=== PATIENT | female | born 1960 | race Caucasian/White ===

== ENCOUNTER 2023-08-28 16:07 | Inpatient (IN) | payer OTHER ==
[~2023-08-28] VITALS: Ht 160 cm; Wt 64.6 kg
[2023-08-28] VITALS: BP 160/93; TEMP 99.5; O2SAT 92
[2023-08-28 19:35] LABS: BASOPHILS % (AUTO) 0.1 % (0.0-2.0); EOSINOPHILS # (AUTO) 0.1 K/uL (0.0-0.7); EOSINOPHILS % (AUTO) 0.4 % (0.0-6.0); HEMATOCRIT 38 % (33-45); HEMOGLOBIN 12.9 g/dL (11.5-14.8); LYMPHOCYTES # (AUTO) 0.9 K/uL (0.8-4.8); LYMPHOCYTES % (AUTO) 7.3 % (20.0-44.0); MEAN CORPUSCULAR HEMOGLOBIN 32 PG (26.0-33.0); MEAN CORPUSCULAR HGB CONC 34 g/dl (31.0-36.0); MEAN CORPUSCULAR VOLUME 95 fL (82-100); MONOCYTES # (AUTO) 1.2 K/uL (0.1-1.30); MONOCYTES % (AUTO) 9.6 % (2.0-12.0); NEUTROPHILS # (AUTO) 10.3 K/uL (1.8-8.9); NEUTROPHILS % (AUTO) 82.6 % (43.0-81.0); PLATELET COUNT (AUTO) 68 K/uL (150-450); RED BLOOD CELL COUNT(AUTO) 4.03 MIL/uL (4.0-5.2); RED CELL DISTRIBUTION WIDTH 13.9 % (11.5-15.0); WHITE BLOOD COUNT (AUTO) 12.5 K/uL (4.3-11.0)
[2023-08-28] MEDS ORDERED: KETOROLAC TROMETHAMINE INJ 30 MG/ML VIAL ONE ×2 (19:48→20:45)
[2023-08-28 19:58] LABS: LACTIC ACID 2.3 mmol/L (0.4-2.0)
[2023-08-28] MEDS ORDERED: KETOROLAC TROMETHAMINE INJ 30 MG/ML VIAL IV ONE ×2 (20:00→21:00)
[2023-08-28] MEDS ORDERED: IV NS 0.9% 1,000 ML BAG IV ONE ×2 (20:00→21:30)
[2023-08-28 20:07] LABS: CALCIUM, SERUM 8.6 mg/dL (8.5-10.1); CARBON DIOXIDE 23 mmol/L (21-32); CHLORIDE 97 mmol/L (98-107); CREATININE 0.9 mg/dL (0.6-1.3); GLUCOSE 112 mg/dL (74-106); POTASSIUM 3.1 mmol/L (3.5-5.1); SODIUM SERUM 130 mmol/L (136-145); UREA NITROGEN, BLOOD 13 mg/dL (7-18)
[2023-08-28 20:13] LABS: ALANINE AMINOTRANSFERASE 26 U/L (12-78); ALBUMIN 2.8 g/dL (3.4-5.0); ALKALINE PHOSPHATASE 95 U/L (46-116); ASPARTATE AMINOTRANSFERASE 40 U/L (15-37); BILIRUBIN,DIRECT 0.7 mg/dL (0.0-0.2); BILIRUBIN,TOTAL 1.2 mg/dL (0.2-1.0); TOTAL PROTEIN, SERUM 7.7 g/dL (6.4-8.2)
[2023-08-28 20:32] LABS: APPEARANCE,URINE SLIGHTLY CLOUDY (CLEAR); BILIRUBIN,URINE 1+ (NEGATIVE); BLOOD, URINE 3+ Ery/uL (NEGATIVE); COLOR,URINE YELLOW (YELLOW); KETONES,URINE 1+ mg/dL (NEGATIVE); LEUKOCYTE ESTERASE ,URINE NEGATIVE (NEGATIVE); NITRITE, URINE NEGATIVE (NEGATIVE); PH,URINE 6.5 (5.0-8.0); PROTEIN,URINE 2+ mg/dl (NEGATIVE); UGLUCOSE TRACE mg/dL (NEGATIVE)
[2023-08-28] MEDS ORDERED: ASPIRIN 81 MG TAB.CHEW ONE (20:34)
[2023-08-28 20:38] LABS: INR 1.55 (0.91-1.10)
[2023-08-28 20:46] LABS: UROBILINOGEN,URINE NOTE EU/dL (0.2)
[2023-08-28] MEDS ORDERED: ASPIRIN 81 MG TAB.CHEW PO ONE (21:00)
[2023-08-28] MEDS ORDERED: ACETAMINOPHEN ES 500 MG TABLET PO ONE (21:30)
[2023-08-28] MEDS ORDERED: VANCOMYCIN 1.25 GM in IV D5W 500 ML IV ONE (21:30)
[2023-08-28] MEDS ORDERED: CEFTRIAXONE 1GM BAG (ER ONLY) 1 GM/50 ML PIGGYBACK IV ONE (21:30)
[2023-08-28 22:08] LABS: ADD URINE CULTURE NO; BACTERIA,URINE RARE /HPF (None Seen); RBC,URINE 51-80 /HPF (0-2); URINE AMORPHOUS URATE Few /HPF (None Seen); WBC,URINE 0-2 /HPF (0-3)
[2023-08-28] MEDS ORDERED: CEFTRIAXONE 1GM BAG (ER ONLY) 50 ML IV ONE (22:09)
[2023-08-28 22:17] LABS: ANISOCYTOSIS 1+; BAND % (MANUAL) 4 % (0.0-5.0); LYMPHOCYTES % (MANUAL) 6 % (16-48); MONOCYTES % (MANUAL) 7 % (0-11.0); NEUTROPHILS % (MANUAL) 83 (42-76); PLATELET ESTIMATE DECREASED
[2023-08-28 22:18] LABS: ROULEAUX 1+
[2023-08-28 22:22] LABS: ALBUMIN 2.6 g/dL (3.4-5.0); BILIRUBIN,DIRECT 0.7 mg/dL (0.0-0.2); BILIRUBIN,TOTAL 1.1 mg/dL (0.2-1.0); TOTAL PROTEIN, SERUM 7.1 g/dL (6.4-8.2)
[2023-08-28] MEDS ORDERED: ZOLPIDEM TARTRATE 5 MG TABLET PO PRN (23:00)
[2023-08-28] MEDS ORDERED: Z GUARD REMEDY 4 OZ OINT TP PRN (23:00)
[2023-08-28] MEDS ORDERED: ONDANSETRON HCL/PF 4 MG/2 ML VIAL IVP PRN (23:00)
[2023-08-28] MEDS ORDERED: MAG HYDROX/AL HYDROX/SIMETH 30 ML UDC PO PRN (23:00)
[2023-08-28] MEDS ORDERED: CEFEPIME 1 GM in IV D5W 50 ML IV SCH (23:00)
[2023-08-28] MEDS ORDERED: ONDANSETRON HCL/PF 4 MG/2 ML VIAL ONE (23:10)
[2023-08-28] MEDS ORDERED: VANCOMYCIN 1 GM /D5W 250 ML PB IV ONE (23:11)
[2023-08-28] MEDS ORDERED: ONDANSETRON HCL/PF 4 MG/2 ML VIAL IV PRN (23:30)
[2023-08-29] VITALS (7 sets, daily range): BP systolic 116–150; BP diastolic 72–93; TEMP 98.1–102.5; O2SAT 93–97
[2023-08-29 06:03] LABS: BASOPHILS % (AUTO) 0.1 % (0.0-2.0); EOSINOPHILS # (AUTO) 0.1 K/uL (0.0-0.7); EOSINOPHILS % (AUTO) 0.7 % (0.0-6.0); HEMATOCRIT 37 % (33-45); HEMOGLOBIN 12.6 g/dL (11.5-14.8); LYMPHOCYTES # (AUTO) 0.5 K/uL (0.8-4.8); LYMPHOCYTES % (AUTO) 3.7 % (20.0-44.0); MEAN CORPUSCULAR HEMOGLOBIN 32 PG (26.0-33.0); MEAN CORPUSCULAR HGB CONC 34 g/dl (31.0-36.0); MEAN CORPUSCULAR VOLUME 95 fL (82-100); MONOCYTES # (AUTO) 1.1 K/uL (0.1-1.30); MONOCYTES % (AUTO) 7.7 % (2.0-12.0); NEUTROPHILS # (AUTO) 12.9 K/uL (1.8-8.9); NEUTROPHILS % (AUTO) 87.8 % (43.0-81.0); PLATELET COUNT (AUTO) 63 K/uL (150-450); RED BLOOD CELL COUNT(AUTO) 3.95 MIL/uL (4.0-5.2); RED CELL DISTRIBUTION WIDTH 14.3 % (11.5-15.0); WHITE BLOOD COUNT (AUTO) 14.7 K/uL (4.3-11.0)
[2023-08-29 06:31] LABS: CALCIUM, SERUM 7.3 mg/dL (8.5-10.1); CREATININE 0.7 mg/dL (0.6-1.3); MAGNESIUM 1.7 mg/dL (1.8-2.4); PHOSPHORUS 1.9 mg/dL (2.5-4.9); POTASSIUM 2.9 mmol/L (3.5-5.1)
[2023-08-29 07:06] LABS: BAND % (MANUAL) 4 % (0.0-5.0); LYMPHOCYTES % (MANUAL) 2 % (16-48); MONOCYTES % (MANUAL) 6 % (0-11.0); NEUTROPHILS % (MANUAL) 88 (42-76)
[2023-08-29 07:07] LABS: ANISOCYTOSIS 1+; PLATELET ESTIMATE DECREASED
[2023-08-29] MEDS: CEFEPIME 2 GM in IV D5W 100 ML IV SCH ×2 (08:21→17:15)
[2023-08-29] MEDS ORDERED: PANTOPRAZOLE 40 MG VIAL IV SCH (09:00)
[2023-08-29] MEDS ORDERED: MAGNESIUM OXIDE 400 MG TABLET PO ONE (10:30)
[2023-08-29] MEDS: ASPIRIN 81 MG TAB.CHEW PO SCH (10:42)
[2023-08-29] MEDS: ACETAMINOPHEN 325 MG TABLET PO PRN (11:29)
[2023-08-29] MEDS ORDERED: DOXYCYCLINE 100 MG in IV D5W 100 ML IV SCH (14:00)
[2023-08-29] MEDS: ENOXAPARIN SODIUM 40 MG/0.4 ML DISP.SYRIN SQ SCH ×2 (14:00→15:10)
[2023-08-29] MEDS: POTASSIUM CL. PREMIX PERIPHER. 50 ML IV SCH ×6 (14:04→19:40)
[2023-08-29] MEDS ORDERED: K PHOS NEUTRAL 250 MG TABLET PO ONE (16:00)
[2023-08-29] MEDS: TRAMADOL HCL 50 MG TABLET PO PRN (19:39)
[2023-08-29] MEDS: ACYCLOVIR IV 500 MG in IV D5W 100 ML IV SCH (21:00)
[2023-08-29] MEDS ORDERED: VANCOMYCIN 1 GM in IV D5W 250ml IV ONE (22:00)
[2023-08-29] MEDS: NYSTATIN (PYXIS) 500,000 UNIT/5 ML ORAL.SUSP PO SCH (23:05)
[2023-08-29] MEDS ORDERED: VANCOMYCIN 1 GM /D5W 250 ML PB IV ONE (23:07)
[2023-08-29] MEDS ORDERED: ACYCLOVIR IV 500 MG VIAL IV ONE (23:43)
[2023-08-30] VITALS: BP 157/86; TEMP 101.5; O2SAT 95
[2023-08-30] MEDS: ACYCLOVIR IV 500 MG in IV D5W 100 ML IV SCH ×3 (00:04→21:16)
[2023-08-30] MEDS: ACETAMINOPHEN 325 MG TABLET PO PRN ×2 (00:22→13:16)
[2023-08-30 04:00] VITALS: BP 109/71; TEMP 100.3; O2SAT 97
[2023-08-30 07:17] LABS: EOSINOPHILS # (AUTO) 0.2 K/uL (0.0-0.7); EOSINOPHILS % (AUTO) 1.4 % (0.0-6.0); HEMATOCRIT 37 % (33-45); HEMOGLOBIN 12.5 g/dL (11.5-14.8); LYMPHOCYTES # (AUTO) 0.9 K/uL (0.8-4.8); LYMPHOCYTES % (AUTO) 6.9 % (20.0-44.0); MEAN CORPUSCULAR HEMOGLOBIN 32 PG (26.0-33.0); MEAN CORPUSCULAR HGB CONC 34 g/dl (31.0-36.0); MEAN CORPUSCULAR VOLUME 95 fL (82-100); MONOCYTES # (AUTO) 1.2 K/uL (0.1-1.30); MONOCYTES % (AUTO) 9.3 % (2.0-12.0); NEUTROPHILS % (AUTO) 82.4 % (43.0-81.0); PLATELET COUNT (AUTO) 60 K/uL (150-450); RED BLOOD CELL COUNT(AUTO) 3.92 MIL/uL (4.0-5.2); RED CELL DISTRIBUTION WIDTH 14.6 % (11.5-15.0); WHITE BLOOD COUNT (AUTO) 13.3 K/uL (4.3-11.0)
[2023-08-30 07:24] LABS: CALCIUM, SERUM 7.9 mg/dL (8.5-10.1); CREATININE 0.7 mg/dL (0.6-1.3); MAGNESIUM 2.1 mg/dL (1.8-2.4); PHOSPHORUS 1.5 mg/dL (2.5-4.9); POTASSIUM 3.3 mmol/L (3.5-5.1)
[2023-08-30 08:00] VITALS: BP 120/72; TEMP 97.1; O2SAT 97
[2023-08-30] MEDS ORDERED: Magnesium 1GM/D5W 100ML PREMIX 100 ML IV SCH (09:00)
[2023-08-30] MEDS: NYSTATIN (PYXIS) 500,000 UNIT/5 ML ORAL.SUSP PO SCH ×3 (09:41→18:17)
[2023-08-30] MEDS: PANTOPRAZOLE 40 MG TABLET.DR PO SCH (09:41)
[2023-08-30] MEDS: POTASSIUM CHLORIDE 20 MEQ TAB.PRT.SR PO SCH ×3 (09:41→12:09)
[2023-08-30] MEDS: ASPIRIN 81 MG TAB.CHEW PO SCH (09:41)
[2023-08-30] MEDS: NEUTRA PHOS 1 POWD.PACKET PO SCH ×2 (09:45→18:17)
[2023-08-30] MEDS: VANCOMYCIN 1 GM in IV D5W 250ml IV SCH ×2 (11:16→22:01)
[2023-08-30] MEDS: TRAMADOL HCL 50 MG TABLET PO PRN (11:17)
[2023-08-30 11:49] LABS: PLATELET ESTIMATE DECREASED
[2023-08-30 11:50] LABS: OVALOCYTES 1+; TEAR DROP CELLS 1+
[2023-08-30 12:00] VITALS: BP 160/78; TEMP 97.6; O2SAT 98
[2023-08-30] MEDS ORDERED: POTASSIUM CHLORIDE 20 MEQ TAB.PRT.SR PO ONE (12:00)
[2023-08-30] MEDS: ENOXAPARIN SODIUM 40 MG/0.4 ML DISP.SYRIN SQ SCH (14:00)
[2023-08-30] MEDS: CEFTRIAXONE 2 G in IV D5W 100 ML IV SCH ×2 (15:40→21:17)
[2023-08-30 16:10] VITALS: BP 170/85; TEMP 97.6; O2SAT 98
[2023-08-30 20:00] VITALS: BP 119/81; TEMP 97; O2SAT 90
[2023-08-31] VITALS: BP 133/88; TEMP 97.5; O2SAT 96
[2023-08-31 04:00] VITALS: BP 140/78; TEMP 99.3; O2SAT 95
[2023-08-31] MEDS: HYDROCODONE/APAP 5/325MG TABLET PO PRN ×3 (04:09→23:43)
[2023-08-31] MEDS: ACYCLOVIR IV 500 MG in IV D5W 100 ML IV SCH ×3 (04:21→22:00)
[2023-08-31 07:52] LABS: BASOPHILS % (AUTO) 0.1 % (0.0-2.0); EOSINOPHILS % (AUTO) 0.4 % (0.0-6.0); HEMATOCRIT 36 % (33-45); LYMPHOCYTES # (AUTO) 1.4 K/uL (0.8-4.8); LYMPHOCYTES % (AUTO) 10.7 % (20.0-44.0); MEAN CORPUSCULAR HEMOGLOBIN 32 PG (26.0-33.0); MEAN CORPUSCULAR HGB CONC 34 g/dl (31.0-36.0); MEAN CORPUSCULAR VOLUME 95 fL (82-100); MONOCYTES # (AUTO) 1.2 K/uL (0.1-1.30); MONOCYTES % (AUTO) 9.2 % (2.0-12.0); NEUTROPHILS # (AUTO) 10.5 K/uL (1.8-8.9); NEUTROPHILS % (AUTO) 79.6 % (43.0-81.0); PLATELET COUNT (AUTO) 77 K/uL (150-450); RED BLOOD CELL COUNT(AUTO) 3.76 MIL/uL (4.0-5.2); RED CELL DISTRIBUTION WIDTH 15.1 % (11.5-15.0); WHITE BLOOD COUNT (AUTO) 13.2 K/uL (4.3-11.0)
[2023-08-31 08:00] VITALS: BP 133/86; TEMP 98.4; O2SAT 98
[2023-08-31 08:19] LABS: ALBUMIN 1.8 g/dL (3.4-5.0); BILIRUBIN,TOTAL 0.9 mg/dL (0.2-1.0); CREATININE 0.6 mg/dL (0.6-1.3); MAGNESIUM 2.1 mg/dL (1.8-2.4); PHOSPHORUS 1.5 mg/dL (2.5-4.9); POTASSIUM 3.9 mmol/L (3.5-5.1); TOTAL PROTEIN, SERUM 6.9 g/dL (6.4-8.2)
[2023-08-31] MEDS: CEFTRIAXONE 2 G in IV D5W 100 ML IV SCH ×2 (08:34→21:25)
[2023-08-31] MEDS: PANTOPRAZOLE 40 MG TABLET.DR PO SCH (08:35)
[2023-08-31] MEDS: ASPIRIN 81 MG TAB.CHEW PO SCH (08:35)
[2023-08-31] MEDS: NYSTATIN (PYXIS) 500,000 UNIT/5 ML ORAL.SUSP PO SCH ×3 (08:35→17:34)
[2023-08-31 11:33] LABS: ANISOCYTOSIS 1+; PLATELET ESTIMATE DECREASED
[2023-08-31] MEDS: VANCOMYCIN 1 GM in IV D5W 250ml IV SCH ×2 (11:52→18:02)
[2023-08-31 12:00] VITALS: BP 133/86; TEMP 98.8; O2SAT 98
[2023-08-31] MEDS ORDERED: NEUTRA PHOS 1 POWD.PACKET PO ONE (12:00)
[2023-08-31] MEDS: ENOXAPARIN SODIUM 40 MG/0.4 ML DISP.SYRIN SQ SCH (14:39)
[2023-08-31 16:00] VITALS: BP 109/77; TEMP 98.6
[2023-08-31 16:49] LABS: THYROID STIMULATING HORMONE 2.189 uIU/mL (0.358-3.74)
[2023-08-31 16:52] LABS: C-REACTIVE PROTEIN 26.6 mg/dL (0.0-0.9)
[2023-08-31 17:44] LABS: RHEUMATOID FACTOR SCREEN NEGATIVE (NEGATIVE)
[2023-08-31 20:00] VITALS: BP 127/73; TEMP 99.3; O2SAT 98
[2023-08-31] MEDS ORDERED: IV NS 0.9% 250 ML IV PRN (22:00)
[2023-09-01] VITALS: BP 126/73; TEMP 99.7; O2SAT 95
[2023-09-01] MEDS: VANCOMYCIN 1 GM in IV D5W 250ml IV SCH ×2 (02:38→11:17)
[2023-09-01 04:00] VITALS: BP 140/87; TEMP 98.8; O2SAT 97
[2023-09-01] MEDS: ACYCLOVIR IV 500 MG in IV D5W 100 ML IV SCH ×3 (05:03→21:02)
[2023-09-01 07:23] LABS: BASOPHILS % (AUTO) 0.2 % (0.0-2.0); EOSINOPHILS # (AUTO) 0.1 K/uL (0.0-0.7); EOSINOPHILS % (AUTO) 0.6 % (0.0-6.0); HEMATOCRIT 37 % (33-45); HEMOGLOBIN 12.4 g/dL (11.5-14.8); LYMPHOCYTES # (AUTO) 1.7 K/uL (0.8-4.8); LYMPHOCYTES % (AUTO) 14.6 % (20.0-44.0); MEAN CORPUSCULAR HEMOGLOBIN 32 PG (26.0-33.0); MEAN CORPUSCULAR HGB CONC 34 g/dl (31.0-36.0); MEAN CORPUSCULAR VOLUME 96 fL (82-100); MONOCYTES # (AUTO) 1.2 K/uL (0.1-1.30); MONOCYTES % (AUTO) 10.4 % (2.0-12.0); NEUTROPHILS # (AUTO) 8.4 K/uL (1.8-8.9); NEUTROPHILS % (AUTO) 74.2 % (43.0-81.0); PLATELET COUNT (AUTO) 87 K/uL (150-450); RED BLOOD CELL COUNT(AUTO) 3.86 MIL/uL (4.0-5.2); RED CELL DISTRIBUTION WIDTH 14.8 % (11.5-15.0); WHITE BLOOD COUNT (AUTO) 11.3 K/uL (4.3-11.0)
[2023-09-01 07:53] LABS: CALCIUM, SERUM 8.3 mg/dL (8.5-10.1); CREATININE 0.6 mg/dL (0.6-1.3); MAGNESIUM 2.2 mg/dL (1.8-2.4); PHOSPHORUS 2.2 mg/dL (2.5-4.9)
[2023-09-01 08:00] VITALS: BP 142/82; TEMP 98.5; O2SAT 96
[2023-09-01] MEDS: CEFTRIAXONE 2 G in IV D5W 100 ML IV SCH ×2 (08:32→20:16)
[2023-09-01] MEDS: NYSTATIN (PYXIS) 500,000 UNIT/5 ML ORAL.SUSP PO SCH ×3 (08:33→18:14)
[2023-09-01] MEDS: ASPIRIN 81 MG TAB.CHEW PO SCH (08:33)
[2023-09-01] MEDS: PANTOPRAZOLE 40 MG TABLET.DR PO SCH (08:33)
[2023-09-01 09:56] LABS: BAND % (MANUAL) 3 % (0.0-5.0); LYMPHOCYTES % (MANUAL) 9 % (16-48); MONOCYTES % (MANUAL) 7 % (0-11.0); NEUTROPHILS % (MANUAL) 81 (42-76); PLATELET ESTIMATE DECREASED
[2023-09-01 09:57] LABS: ANISOCYTOSIS 1+; TEAR DROP CELLS 1+
[2023-09-01 10:07] LABS: FOLIC ACID 4.9 ng/mL (>3.0)
[2023-09-01] MEDS: HYDROCODONE/APAP 5/325MG TABLET PO PRN ×2 (10:57→23:18)
[2023-09-01 12:00] VITALS: BP 145/87; TEMP 100.2; O2SAT 95
[2023-09-01 12:07] LABS: HEPATITIS B SURFACE AB Non Reactive (.)
[2023-09-01] MEDS: ACETAMINOPHEN 325 MG TABLET PO PRN ×2 (12:08→20:57)
[2023-09-01 13:07] LABS: *ANA ANTI-CENTROMERE B AB <0.2 AI (0.0-0.9); *ANA ANTI-DNA(DS) AB, QN 2 IU/mL (0-9); *ANA ANTI-JO-1 <0.2 AI (0.0-0.9); *ANA ANTICHROMATIN ANTIBODY <0.2 AI (0.0-0.9); *ANA RNP ANTIBODIES 0.5 AI (0.0-0.9); *ANA SJOGREN'S ANTI-SS-A <0.2 AI (0.0-0.9); *ANA SJOGREN'S ANTI-SS-B <0.2 AI (0.0-0.9); *ANAANTI-SCLERODERMA-70 AB <0.2 AI (0.0-0.9); *ANASMITH AB <0.2 AI (0.0-0.9); *SPE A/G RATIO 0.5 (0.7-1.7); *SPE ALBUMIN 2.2 g/dL (2.9-4.4); *SPE ALPHA-1-GLOBULIN 0.4 g/dL (0.0-0.4); *SPE ALPHA-2-GLOBULIN 0.7 g/dL (0.4-1.0); *SPE BETA GLOBULIN 0.9 g/dL (0.7-1.3); *SPE GLOBULIN, TOTAL 4.7 g/dL (2.2-3.9); *SPE M-SPIKE Not Observed g/dL (Not Observed); *SPE PROTEIN TOTAL 6.9 g/dL (6.0-8.5); *SPEGAMMA GLOBULIN 2.6 g/dL (0.4-1.8)
[2023-09-01] MEDS: ENOXAPARIN SODIUM 40 MG/0.4 ML DISP.SYRIN SQ SCH (13:41)
[2023-09-01 14:06] LABS: IMMUNOGLOBULIN A, SERUM 859 mg/dL (87-352); IMMUNOGLOBULIN G, SERUM 2341 mg/dL (586-1602); IMMUNOGLOBULIN M, SERUM 167 mg/dL (26-217)
[2023-09-01 16:00] VITALS: BP 112/71; TEMP 98.2; O2SAT 98
[2023-09-01] MEDS ORDERED: K PHOS NEUTRAL 250 MG TABLET PO ONE (17:00)
[2023-09-01 20:00] VITALS: BP 144/89; TEMP 101.3; O2SAT 96
[2023-09-01] MEDS: MAGNESIUM HYDROXIDE 30 ML UDC PO PRN (23:25)
[2023-09-02] VITALS: BP 128/62; TEMP 98.4; O2SAT 96
[2023-09-02 04:00] VITALS: BP 119/74; TEMP 98.4; O2SAT 96
[2023-09-02] MEDS: ACYCLOVIR IV 500 MG in IV D5W 100 ML IV SCH ×3 (05:02→21:04)
[2023-09-02 07:38] LABS: CALCIUM, SERUM 7.5 mg/dL (8.5-10.1); CREATININE 0.6 mg/dL (0.6-1.3); POTASSIUM 3.9 mmol/L (3.5-5.1)
[2023-09-02 08:00] VITALS: BP_SYST 114; BP_SYST 132; BP_DIAS 68; BP_DIAS 78; TEMP 98.6; TEMP 99.7; O2SAT 95; O2SAT 98
[2023-09-02 08:48] LABS: BASOPHILS % (AUTO) 0.3 % (0.0-2.0); EOSINOPHILS # (AUTO) 0.1 K/uL (0.0-0.7); HEMATOCRIT 33 % (33-45); HEMOGLOBIN 11.3 g/dL (11.5-14.8); LYMPHOCYTES # (AUTO) 1.1 K/uL (0.8-4.8); LYMPHOCYTES % (AUTO) 13.2 % (20.0-44.0); MEAN CORPUSCULAR HEMOGLOBIN 32 PG (26.0-33.0); MEAN CORPUSCULAR HGB CONC 34 g/dl (31.0-36.0); MEAN CORPUSCULAR VOLUME 96 fL (82-100); MONOCYTES # (AUTO) 0.7 K/uL (0.1-1.30); MONOCYTES % (AUTO) 8.7 % (2.0-12.0); NEUTROPHILS # (AUTO) 6.3 K/uL (1.8-8.9); NEUTROPHILS % (AUTO) 76.8 % (43.0-81.0); PLATELET COUNT (AUTO) 96 K/uL (150-450); RED BLOOD CELL COUNT(AUTO) 3.48 MIL/uL (4.0-5.2); RED CELL DISTRIBUTION WIDTH 14.7 % (11.5-15.0); WHITE BLOOD COUNT (AUTO) 8.2 K/uL (4.3-11.0)
[2023-09-02 09:24] LABS: INR 1.2 (0.91-1.10); PARTIAL THROMBOPLASTIN TIME 32.7 SEC (24.3-34.3); PROTHROMBIN TIME 12.6 SECS (9.2-11.1)
[2023-09-02] MEDS: HYDROCODONE/APAP 5/325MG TABLET PO PRN ×3 (09:35→22:52)
[2023-09-02] MEDS: PANTOPRAZOLE 40 MG TABLET.DR PO SCH (11:05)
[2023-09-02] MEDS: NYSTATIN (PYXIS) 500,000 UNIT/5 ML ORAL.SUSP PO SCH ×3 (11:05→17:08)
[2023-09-02] MEDS: ASPIRIN 81 MG TAB.CHEW PO SCH (11:05)
[2023-09-02] MEDS: CEFTRIAXONE 2 G in IV D5W 100 ML IV SCH ×2 (11:05→21:04)
[2023-09-02 12:00] VITALS: BP_SYST 136; BP_SYST 148; BP_DIAS 76; BP_DIAS 80; TEMP 98.2; TEMP 98.4; O2SAT 97; O2SAT 98
[2023-09-02 12:07] LABS: *WEST NILE VIRUS, IgG, SERUM Negative (Negative); *WEST NILE VIRUS, IgM, SERUM Negative (Negative)
[2023-09-02 12:09] LABS: CSF GLUCOSE 13 mg/dL (40-70); CSF PROTEIN 456.02 mg/dL (15-45)
[2023-09-02] MEDS: AMPICILLIN SODIUM 2 GM in IV NS 0.9% 100 ML IV SCH ×3 (13:13→20:03)
[2023-09-02] MEDS: ENOXAPARIN SODIUM 40 MG/0.4 ML DISP.SYRIN SQ SCH (14:26)
[2023-09-02 14:31] LABS: PLATELET ESTIMATE DECREASED; TEAR DROP CELLS OCC
[2023-09-02] MEDS: VANCOMYCIN 1 GM in IV D5W 250 ML IV SCH ×2 (15:20→21:56)
[2023-09-02 16:00] VITALS: BP 119/69; TEMP 97.5; O2SAT 100
[2023-09-02] MEDS ORDERED: IV D5/ 0.9% NACL 1,000 ML IV PRN (17:30)
[2023-09-02 20:00] VITALS: BP 127/75; TEMP 98.4; O2SAT 100
[2023-09-03] VITALS: BP 120/78; TEMP 98.8; O2SAT 100
[2023-09-03] MEDS: AMPICILLIN SODIUM 2 GM in IV NS 0.9% 100 ML IV SCH ×6 (01:05→20:53)
[2023-09-03 04:00] VITALS: BP 137/85; TEMP 98.8; O2SAT 100
[2023-09-03] MEDS: ACYCLOVIR IV 500 MG in IV D5W 100 ML IV SCH ×3 (05:31→21:56)
[2023-09-03] MEDS: VANCOMYCIN 1 GM in IV D5W 250 ML IV SCH ×3 (06:02→22:59)
[2023-09-03 07:21] LABS: BASOPHILS % (AUTO) 0.2 % (0.0-2.0); EOSINOPHILS # (AUTO) 0.1 K/uL (0.0-0.7); EOSINOPHILS % (AUTO) 1.1 % (0.0-6.0); HEMATOCRIT 30 % (33-45); HEMOGLOBIN 10.3 g/dL (11.5-14.8); LYMPHOCYTES # (AUTO) 0.9 K/uL (0.8-4.8); LYMPHOCYTES % (AUTO) 14.7 % (20.0-44.0); MEAN CORPUSCULAR HEMOGLOBIN 33 PG (26.0-33.0); MEAN CORPUSCULAR HGB CONC 34 g/dl (31.0-36.0); MEAN CORPUSCULAR VOLUME 95 fL (82-100); MONOCYTES # (AUTO) 0.7 K/uL (0.1-1.30); MONOCYTES % (AUTO) 10.2 % (2.0-12.0); NEUTROPHILS # (AUTO) 4.8 K/uL (1.8-8.9); NEUTROPHILS % (AUTO) 73.8 % (43.0-81.0); PLATELET COUNT (AUTO) 97 K/uL (150-450); RED BLOOD CELL COUNT(AUTO) 3.14 MIL/uL (4.0-5.2); RED CELL DISTRIBUTION WIDTH 14.6 % (11.5-15.0); WHITE BLOOD COUNT (AUTO) 6.5 K/uL (4.3-11.0)
[2023-09-03 07:41] LABS: CALCIUM, SERUM 7.3 mg/dL (8.5-10.1); CREATININE 0.7 mg/dL (0.6-1.3); MAGNESIUM 2.2 mg/dL (1.8-2.4); PHOSPHORUS 3.5 mg/dL (2.5-4.9); POTASSIUM 3.9 mmol/L (3.5-5.1)
[2023-09-03 08:00] VITALS: BP 114/76; TEMP 99; O2SAT 100
[2023-09-03] MEDS: NYSTATIN (PYXIS) 500,000 UNIT/5 ML ORAL.SUSP PO SCH ×3 (09:04→17:38)
[2023-09-03] MEDS: PANTOPRAZOLE 40 MG TABLET.DR PO SCH (09:04)
[2023-09-03] MEDS: ASPIRIN 81 MG TAB.CHEW PO SCH (09:04)
[2023-09-03] MEDS: HYDROMORPHONE 1 MG/1 ML DISP.SYRIN IV PRN ×2 (09:05→20:44)
[2023-09-03] MEDS: CEFTRIAXONE 2 G in IV D5W 100 ML IV SCH ×2 (09:05→20:25)
[2023-09-03 09:43] LABS: BAND % (MANUAL) 1 % (0.0-5.0); EOSINOPHILS % (MANUAL) 3 % (0-4); LYMPHOCYTES % (MANUAL) 5 % (16-48); MONOCYTES % (MANUAL) 8 % (0-11.0); NEUTROPHILS % (MANUAL) 83 (42-76)
[2023-09-03 09:44] LABS: PLATELET ESTIMATE DECREASED
[2023-09-03 12:00] VITALS: BP 121/76; TEMP 99.7; O2SAT 100
[2023-09-03] MEDS: ACETAMINOPHEN 325 MG TABLET PO PRN (12:40)
[2023-09-03] MEDS: ENOXAPARIN SODIUM 40 MG/0.4 ML DISP.SYRIN SQ SCH (14:52)
[2023-09-03 16:00] VITALS: BP 115/66; TEMP 98.6; O2SAT 97
[2023-09-03 20:00] VITALS: BP 133/76; TEMP 99.3; O2SAT 98
[2023-09-04] VITALS: BP 134/72; TEMP 98.8; O2SAT 99
[2023-09-04] MEDS: AMPICILLIN SODIUM 2 GM in IV NS 0.9% 100 ML IV SCH ×6 (01:55→22:22)
[2023-09-04 04:00] VITALS: BP 131/78; TEMP 99.7; O2SAT 98
[2023-09-04] MEDS: ACYCLOVIR IV 500 MG in IV D5W 100 ML IV SCH ×3 (04:01→20:51)
[2023-09-04] MEDS: HYDROMORPHONE 1 MG/1 ML DISP.SYRIN IV PRN ×3 (04:07→23:23)
[2023-09-04 06:01] LABS: BASOPHILS % (AUTO) 0.2 % (0.0-2.0); EOSINOPHILS # (AUTO) 0.1 K/uL (0.0-0.7); EOSINOPHILS % (AUTO) 1.4 % (0.0-6.0); HEMATOCRIT 29 % (33-45); HEMOGLOBIN 9.9 g/dL (11.5-14.8); LYMPHOCYTES # (AUTO) 0.8 K/uL (0.8-4.8); LYMPHOCYTES % (AUTO) 12.7 % (20.0-44.0); MEAN CORPUSCULAR HEMOGLOBIN 33 PG (26.0-33.0); MEAN CORPUSCULAR HGB CONC 34 g/dl (31.0-36.0); MEAN CORPUSCULAR VOLUME 96 fL (82-100); MONOCYTES # (AUTO) 0.6 K/uL (0.1-1.30); MONOCYTES % (AUTO) 9.1 % (2.0-12.0); NEUTROPHILS # (AUTO) 4.6 K/uL (1.8-8.9); NEUTROPHILS % (AUTO) 76.6 % (43.0-81.0); PLATELET COUNT (AUTO) 117 K/uL (150-450); RED BLOOD CELL COUNT(AUTO) 3.04 MIL/uL (4.0-5.2); RED CELL DISTRIBUTION WIDTH 14.5 % (11.5-15.0); WHITE BLOOD COUNT (AUTO) 6.1 K/uL (4.3-11.0)
[2023-09-04] MEDS: ACETAMINOPHEN 325 MG TABLET PO PRN ×2 (06:10→22:09)
[2023-09-04] MEDS: VANCOMYCIN 1 GM in IV D5W 250 ML IV SCH ×3 (06:10→22:01)
[2023-09-04 06:13] LABS: CALCIUM, SERUM 7.7 mg/dL (8.5-10.1); CREATININE 0.8 mg/dL (0.6-1.3); MAGNESIUM 2.1 mg/dL (1.8-2.4); PHOSPHORUS 3.4 mg/dL (2.5-4.9); POTASSIUM 3.9 mmol/L (3.5-5.1)
[2023-09-04 08:00] VITALS: BP 114/69; TEMP 99; O2SAT 97
[2023-09-04] MEDS: PANTOPRAZOLE 40 MG TABLET.DR PO SCH (09:33)
[2023-09-04] MEDS: ASPIRIN 81 MG TAB.CHEW PO SCH (09:33)
[2023-09-04] MEDS: NYSTATIN (PYXIS) 500,000 UNIT/5 ML ORAL.SUSP PO SCH ×3 (09:33→18:51)
[2023-09-04] MEDS: CEFTRIAXONE 2 G in IV D5W 100 ML IV SCH ×2 (10:27→20:09)
[2023-09-04 12:00] VITALS: BP 112/62; TEMP 97.8; O2SAT 97
[2023-09-04] MEDS: ENOXAPARIN SODIUM 40 MG/0.4 ML DISP.SYRIN SQ SCH (14:11)
[2023-09-04 16:00] VITALS: BP 116/68; TEMP 98.1; O2SAT 97
[2023-09-04 20:00] VITALS: BP 133/76; TEMP 99.1; O2SAT 97
[2023-09-05] VITALS: BP 113/62; TEMP 98.1; O2SAT 97
[2023-09-05] MEDS: AMPICILLIN SODIUM 2 GM in IV NS 0.9% 100 ML IV SCH ×6 (02:21→20:39)
[2023-09-05] MEDS: ACYCLOVIR IV 500 MG in IV D5W 100 ML IV SCH ×3 (04:15→21:50)
[2023-09-05 04:40] VITALS: BP 102/65; TEMP 97.3; O2SAT 97
[2023-09-05] MEDS: VANCOMYCIN 1 GM in IV D5W 250 ML IV SCH ×3 (05:25→21:50)
[2023-09-05 05:56] LABS: BASOPHILS % (AUTO) 0.3 % (0.0-2.0); EOSINOPHILS # (AUTO) 0.1 K/uL (0.0-0.7); EOSINOPHILS % (AUTO) 1.6 % (0.0-6.0); HEMATOCRIT 27 % (33-45); HEMOGLOBIN 9.1 g/dL (11.5-14.8); LYMPHOCYTES # (AUTO) 0.7 K/uL (0.8-4.8); LYMPHOCYTES % (AUTO) 16.2 % (20.0-44.0); MEAN CORPUSCULAR HEMOGLOBIN 33 PG (26.0-33.0); MEAN CORPUSCULAR HGB CONC 34 g/dl (31.0-36.0); MEAN CORPUSCULAR VOLUME 95 fL (82-100); MONOCYTES # (AUTO) 0.5 K/uL (0.1-1.30); MONOCYTES % (AUTO) 10.6 % (2.0-12.0); NEUTROPHILS # (AUTO) 3.3 K/uL (1.8-8.9); NEUTROPHILS % (AUTO) 71.3 % (43.0-81.0); PLATELET COUNT (AUTO) 114 K/uL (150-450); RED BLOOD CELL COUNT(AUTO) 2.82 MIL/uL (4.0-5.2); RED CELL DISTRIBUTION WIDTH 14.2 % (11.5-15.0); WHITE BLOOD COUNT (AUTO) 4.6 K/uL (4.3-11.0)
[2023-09-05 06:06] LABS: CALCIUM, SERUM 7.8 mg/dL (8.5-10.1); CREATININE 0.8 mg/dL (0.6-1.3); MAGNESIUM 2.3 mg/dL (1.8-2.4); PHOSPHORUS 4.4 mg/dL (2.5-4.9)
[2023-09-05 08:10] VITALS: BP 125/74; TEMP 98.5; O2SAT 100
[2023-09-05] MEDS: ASPIRIN 81 MG TAB.CHEW PO SCH (08:25)
[2023-09-05] MEDS: PANTOPRAZOLE 40 MG TABLET.DR PO SCH (08:25)
[2023-09-05] MEDS: NYSTATIN (PYXIS) 500,000 UNIT/5 ML ORAL.SUSP PO SCH ×3 (08:25→16:32)
[2023-09-05] MEDS: ACETAMINOPHEN 325 MG TABLET PO PRN (08:26)
[2023-09-05] MEDS: CEFTRIAXONE 2 G in IV D5W 100 ML IV SCH ×2 (08:39→20:38)
[2023-09-05] MEDS: HYDROCODONE/APAP 5/325MG TABLET PO PRN ×2 (08:40→21:00)
[2023-09-05] MEDS: HYDROMORPHONE 1 MG/1 ML DISP.SYRIN IV PRN ×2 (09:03→17:26)
[2023-09-05 12:00] VITALS: BP 112/70; TEMP 97.7; O2SAT 99
[2023-09-05] MEDS: ENOXAPARIN SODIUM 40 MG/0.4 ML DISP.SYRIN SQ SCH (14:53)
[2023-09-05 18:00] VITALS: BP 121/70; TEMP 97.7; O2SAT 100
[2023-09-05] MEDS: SOD FERRIC GLUC 125 MG in IV NS 0.9% 100 ML IV SCH (19:21)
[2023-09-05 20:00] VITALS: BP 115/71; TEMP 98.6; O2SAT 98
[2023-09-05 20:55] LABS: HIV-1 p24 ANTIGEN NON REACTIVE (NONREACTIVE); HIV-1/2 ANTIBODY NON REACTIVE (NONREACTIVE)
[2023-09-06] VITALS: BP 110/69; TEMP 98.2; O2SAT 99
[2023-09-06] MEDS: AMPICILLIN SODIUM 2 GM in IV NS 0.9% 100 ML IV SCH ×6 (01:45→21:48)
[2023-09-06 04:00] VITALS: BP 116/74; TEMP 98.4; O2SAT 98
[2023-09-06] MEDS: ACYCLOVIR IV 500 MG in IV D5W 100 ML IV SCH ×3 (05:15→20:24)
[2023-09-06] MEDS: VANCOMYCIN 1 GM in IV D5W 250 ML IV SCH (06:00)
[2023-09-06 06:11] LABS: CALCIUM, SERUM 7.3 mg/dL (8.5-10.1); CREATININE 0.8 mg/dL (0.6-1.3); POTASSIUM 4.5 mmol/L (3.5-5.1)
[2023-09-06 08:00] VITALS: BP 111/68; TEMP 98; O2SAT 99
[2023-09-06] MEDS: CEFTRIAXONE 2 G in IV D5W 100 ML IV SCH ×2 (09:06→20:02)
[2023-09-06] MEDS: PANTOPRAZOLE 40 MG TABLET.DR PO SCH (09:07)
[2023-09-06] MEDS: ASPIRIN 81 MG TAB.CHEW PO SCH (09:07)
[2023-09-06] MEDS: NYSTATIN (PYXIS) 500,000 UNIT/5 ML ORAL.SUSP PO SCH ×3 (09:07→16:22)
[2023-09-06] MEDS: HYDROMORPHONE 1 MG/1 ML DISP.SYRIN IV PRN ×2 (09:12→20:21)
[2023-09-06 12:00] VITALS: BP 115/87; TEMP 97.9; O2SAT 99
[2023-09-06] MEDS: ENOXAPARIN SODIUM 40 MG/0.4 ML DISP.SYRIN SQ SCH (14:00)
[2023-09-06] MEDS: SOD FERRIC GLUC 125 MG in IV NS 0.9% 100 ML IV SCH (14:28)
[2023-09-06 16:00] VITALS: BP 127/79; TEMP 98.6; O2SAT 99
[2023-09-06 20:00] VITALS: BP 118/73; TEMP 99.3; O2SAT 99
[2023-09-06] MEDS: VANCOMYCIN HCL 0.75 GM in IV D5W 250 ML IV SCH (22:39)
[2023-09-07] VITALS: BP 133/80; TEMP 99; O2SAT 99
[2023-09-07] MEDS: AMPICILLIN SODIUM 2 GM in IV NS 0.9% 100 ML IV SCH ×6 (01:10→21:50)
[2023-09-07] MEDS: HYDROCODONE/APAP 5/325MG TABLET PO PRN ×3 (01:11→22:07)
[2023-09-07] MEDS: MAGNESIUM HYDROXIDE 30 ML UDC PO PRN (01:15)
[2023-09-07 04:00] VITALS: BP 110/67; TEMP 98.4; O2SAT 96
[2023-09-07] MEDS: HYDROMORPHONE 1 MG/1 ML DISP.SYRIN IV PRN ×2 (04:16→10:28)
[2023-09-07] MEDS: ACYCLOVIR IV 500 MG in IV D5W 100 ML IV SCH ×2 (04:16→08:52)
[2023-09-07 07:29] LABS: CALCIUM, SERUM 7.4 mg/dL (8.5-10.1); POTASSIUM 4.1 mmol/L (3.5-5.1)
[2023-09-07 08:00] VITALS: BP 128/71; TEMP 98.6; O2SAT 98
[2023-09-07] MEDS: ASPIRIN 81 MG TAB.CHEW PO SCH (08:50)
[2023-09-07] MEDS: NYSTATIN (PYXIS) 500,000 UNIT/5 ML ORAL.SUSP PO SCH ×3 (08:50→17:48)
[2023-09-07] MEDS: CEFTRIAXONE 2 G in IV D5W 100 ML IV SCH ×2 (08:52→21:52)
[2023-09-07] MEDS: PANTOPRAZOLE 40 MG TABLET.DR PO SCH (08:55)
[2023-09-07] MEDS: VANCOMYCIN HCL 0.75 GM in IV D5W 250 ML IV SCH (10:58)
[2023-09-07 12:00] VITALS: BP 123/69; TEMP 99.1; O2SAT 98
[2023-09-07] MEDS: ENOXAPARIN SODIUM 40 MG/0.4 ML DISP.SYRIN SQ SCH (14:37)
[2023-09-07] MEDS: SOD FERRIC GLUC 125 MG in IV NS 0.9% 100 ML IV SCH (14:52)
[2023-09-07 16:00] VITALS: BP 112/95; TEMP 99.1; O2SAT 97
[2023-09-07 20:00] VITALS: BP 143/92; TEMP 99.7; O2SAT 97
[2023-09-08] VITALS: BP 116/67; TEMP 99.3; O2SAT 97
[2023-09-08] MEDS: AMPICILLIN SODIUM 2 GM in IV NS 0.9% 100 ML IV SCH ×6 (00:46→21:28)
[2023-09-08 04:00] VITALS: BP 121/78; TEMP 98.8; O2SAT 97
[2023-09-08 06:57] LABS: BASOPHILS % (AUTO) 0.5 % (0.0-2.0); EOSINOPHILS # (AUTO) 0.1 K/uL (0.0-0.7); EOSINOPHILS % (AUTO) 1.9 % (0.0-6.0); HEMATOCRIT 25 % (33-45); HEMOGLOBIN 8.7 g/dL (11.5-14.8); LYMPHOCYTES # (AUTO) 0.8 K/uL (0.8-4.8); LYMPHOCYTES % (AUTO) 21.7 % (20.0-44.0); MEAN CORPUSCULAR HEMOGLOBIN 34 PG (26.0-33.0); MEAN CORPUSCULAR HGB CONC 35 g/dl (31.0-36.0); MEAN CORPUSCULAR VOLUME 97 fL (82-100); MONOCYTES # (AUTO) 0.6 K/uL (0.1-1.30); MONOCYTES % (AUTO) 16.1 % (2.0-12.0); NEUTROPHILS # (AUTO) 2.2 K/uL (1.8-8.9); NEUTROPHILS % (AUTO) 59.8 % (43.0-81.0); PLATELET COUNT (AUTO) 141 K/uL (150-450); RED BLOOD CELL COUNT(AUTO) 2.59 MIL/uL (4.0-5.2); RED CELL DISTRIBUTION WIDTH 14.3 % (11.5-15.0); WHITE BLOOD COUNT (AUTO) 3.7 K/uL (4.3-11.0)
[2023-09-08 07:22] LABS: CALCIUM, SERUM 7.6 mg/dL (8.5-10.1); CREATININE 1.1 mg/dL (0.6-1.3); MAGNESIUM 2.3 mg/dL (1.8-2.4); PHOSPHORUS 4.2 mg/dL (2.5-4.9); POTASSIUM 4.5 mmol/L (3.5-5.1)
[2023-09-08 08:00] VITALS: BP 106/74; TEMP 98.4; O2SAT 96
[2023-09-08] MEDS: CEFTRIAXONE 2 G in IV D5W 100 ML IV SCH ×2 (08:07→20:42)
[2023-09-08] MEDS: ASPIRIN 81 MG TAB.CHEW PO SCH (09:00)
[2023-09-08] MEDS: NYSTATIN (PYXIS) 500,000 UNIT/5 ML ORAL.SUSP PO SCH ×3 (09:00→17:10)
[2023-09-08] MEDS: PANTOPRAZOLE 40 MG TABLET.DR PO SCH (09:00)
[2023-09-08] MEDS: HYDROCODONE/APAP 5/325MG TABLET PO PRN ×2 (09:09→22:02)
[2023-09-08 12:00] VITALS: BP 126/76; TEMP 98.4; O2SAT 97
[2023-09-08] MEDS: SOD FERRIC GLUC 125 MG in IV NS 0.9% 100 ML IV SCH (14:01)
[2023-09-08] MEDS: ENOXAPARIN SODIUM 40 MG/0.4 ML DISP.SYRIN SQ SCH (14:24)
[2023-09-08 16:00] VITALS: BP 140/77; TEMP 98.4; O2SAT 96
[2023-09-08 20:00] VITALS: BP 133/81; TEMP 99; O2SAT 97
[2023-09-09] VITALS: BP 115/64; TEMP 99; O2SAT 96
[2023-09-09] MEDS: AMPICILLIN SODIUM 2 GM in IV NS 0.9% 100 ML IV SCH ×6 (00:34→20:11)
[2023-09-09 04:00] VITALS: BP 126/72; TEMP 98.3; O2SAT 99
[2023-09-09 07:35] LABS: BASOPHILS % (AUTO) 0.5 % (0.0-2.0); EOSINOPHILS % (AUTO) 1.5 % (0.0-6.0); HEMATOCRIT 25 % (33-45); HEMOGLOBIN 8.3 g/dL (11.5-14.8); LYMPHOCYTES # (AUTO) 0.7 K/uL (0.8-4.8); LYMPHOCYTES % (AUTO) 21.2 % (20.0-44.0); MEAN CORPUSCULAR HEMOGLOBIN 33 PG (26.0-33.0); MEAN CORPUSCULAR HGB CONC 34 g/dl (31.0-36.0); MEAN CORPUSCULAR VOLUME 97 fL (82-100); MONOCYTES # (AUTO) 0.5 K/uL (0.1-1.30); MONOCYTES % (AUTO) 16.2 % (2.0-12.0); NEUTROPHILS # (AUTO) 1.9 K/uL (1.8-8.9); NEUTROPHILS % (AUTO) 60.6 % (43.0-81.0); PLATELET COUNT (AUTO) 134 K/uL (150-450); RED BLOOD CELL COUNT(AUTO) 2.55 MIL/uL (4.0-5.2); RED CELL DISTRIBUTION WIDTH 14.5 % (11.5-15.0); WHITE BLOOD COUNT (AUTO) 3.1 K/uL (4.3-11.0)
[2023-09-09 07:47] LABS: CALCIUM, SERUM 7.6 mg/dL (8.5-10.1); MAGNESIUM 2.3 mg/dL (1.8-2.4); PHOSPHORUS 4.8 mg/dL (2.5-4.9)
[2023-09-09 08:00] VITALS: BP 146/81; TEMP 99.1; O2SAT 96
[2023-09-09] MEDS: ASPIRIN 81 MG TAB.CHEW PO SCH (08:05)
[2023-09-09] MEDS: NYSTATIN (PYXIS) 500,000 UNIT/5 ML ORAL.SUSP PO SCH ×3 (08:05→16:05)
[2023-09-09] MEDS: PANTOPRAZOLE 40 MG TABLET.DR PO SCH (08:05)
[2023-09-09] MEDS: CEFTRIAXONE 2 G in IV D5W 100 ML IV SCH ×2 (08:06→21:28)
[2023-09-09 08:43] LABS: LYMPHOCYTES % (MANUAL) 15 % (16-48); MONOCYTES % (MANUAL) 7 % (0-11.0); NEUTROPHILS % (MANUAL) 78 (42-76)
[2023-09-09 08:44] LABS: ANISOCYTOSIS 1+; PLATELET ESTIMATE ADEQUATE
[2023-09-09] MEDS: HYDROCODONE/APAP 5/325MG TABLET PO PRN (09:14)
[2023-09-09 12:00] VITALS: BP 133/74; TEMP 98.4; O2SAT 96
[2023-09-09] MEDS: ENOXAPARIN SODIUM 40 MG/0.4 ML DISP.SYRIN SQ SCH (14:26)
[2023-09-09] MEDS: SOD FERRIC GLUC 125 MG in IV NS 0.9% 100 ML IV SCH (14:43)
[2023-09-09] MEDS ORDERED: NYST5ORA PO (15:25)
[2023-09-09] MEDS ORDERED: ENOX40DI SQ (15:25)
[2023-09-09] MEDS ORDERED: CEFT2VIA14 IV (15:25)
[2023-09-09] MEDS ORDERED: ASPI-1169 PO (15:25)
[2023-09-09] MEDS ORDERED: PANT40TA49 PO (15:25)
[2023-09-09 16:00] VITALS: BP 136/81; TEMP 99.1; O2SAT 96
[2023-09-09 20:00] VITALS: BP 134/85; TEMP 99.3; O2SAT 97
[2023-09-09] MEDS: ACETAMINOPHEN 325 MG TABLET PO PRN (20:20)
[2023-09-10] VITALS: BP 120/68; TEMP 98.8; O2SAT 96
[2023-09-10] MEDS: AMPICILLIN SODIUM 2 GM in IV NS 0.9% 100 ML IV SCH ×4 (00:27→12:43)
[2023-09-10 04:00] VITALS: BP 133/72; TEMP 98.2; O2SAT 97
[2023-09-10 07:14] LABS: BASOPHILS % (AUTO) 0.5 % (0.0-2.0); EOSINOPHILS # (AUTO) 0.1 K/uL (0.0-0.7); EOSINOPHILS % (AUTO) 1.9 % (0.0-6.0); HEMATOCRIT 24 % (33-45); HEMOGLOBIN 8.2 g/dL (11.5-14.8); LYMPHOCYTES # (AUTO) 0.8 K/uL (0.8-4.8); LYMPHOCYTES % (AUTO) 24.5 % (20.0-44.0); MEAN CORPUSCULAR HEMOGLOBIN 33 PG (26.0-33.0); MEAN CORPUSCULAR HGB CONC 34 g/dl (31.0-36.0); MEAN CORPUSCULAR VOLUME 97 fL (82-100); MONOCYTES # (AUTO) 0.5 K/uL (0.1-1.30); MONOCYTES % (AUTO) 14.5 % (2.0-12.0); NEUTROPHILS # (AUTO) 1.8 K/uL (1.8-8.9); NEUTROPHILS % (AUTO) 58.6 % (43.0-81.0); PLATELET COUNT (AUTO) 147 K/uL (150-450); RED BLOOD CELL COUNT(AUTO) 2.48 MIL/uL (4.0-5.2); RED CELL DISTRIBUTION WIDTH 14.3 % (11.5-15.0); WHITE BLOOD COUNT (AUTO) 3.1 K/uL (4.3-11.0)
[2023-09-10 07:50] LABS: MAGNESIUM 2.1 mg/dL (1.8-2.4); PHOSPHORUS 4.7 mg/dL (2.5-4.9); POTASSIUM 4.1 mmol/L (3.5-5.1)
[2023-09-10 08:00] VITALS: BP 151/86; TEMP 99.1; O2SAT 95
[2023-09-10] MEDS: CEFTRIAXONE 2 G in IV D5W 100 ML IV SCH (08:20)
[2023-09-10] MEDS: ASPIRIN 81 MG TAB.CHEW PO SCH (08:21)
[2023-09-10] MEDS: PANTOPRAZOLE 40 MG TABLET.DR PO SCH (08:21)
[2023-09-10] MEDS: NYSTATIN (PYXIS) 500,000 UNIT/5 ML ORAL.SUSP PO SCH ×2 (08:21→12:42)
[2023-09-10] MEDS: ACETAMINOPHEN 325 MG TABLET PO PRN (08:50)
[2023-09-10 12:00] VITALS: BP 113/80; TEMP 97.6; O2SAT 95
[2023-09-10] MEDS ORDERED: ENOXAPARIN SODIUM 40 MG/0.4 ML DISP.SYRIN SQ SCH (21:00)
== END 2023-09-10 14:30 | DRG 720 ==
LOC: ER 16:19 → TELE1 21:15
PROVIDERS: ADMIT Nurse Practitioner Acute Care; ATTEND Nurse Practitioner Acute Care
PROC: 009U3ZX Drainage of Spinal Canal, Percutaneous Approach, Diagnostic (ICD-10-PCS; 2023-09-02)
PROC: B01BYZZ Fluoroscopy of Spinal Cord using Other Contrast (ICD-10-PCS; 2023-09-02)
PROC: 05HB33Z Insertion of Infusion Device into Right Basilic Vein, Percutaneous Approach (ICD-10-PCS; principal; 2023-09-04)
DX: A40.9 Streptococcal sepsis, unspecified (principal); G00.1 Pneumococcal meningitis; E87.20 Acidosis, unspecified; I21.A1 Myocardial infarction type 2; D69.6 Thrombocytopenia, unspecified; J15.9 Unspecified bacterial pneumonia; E87.1 Hypo-osmolality and hyponatremia; D69.59 Other secondary thrombocytopenia; B37.0 Candidal stomatitis; E83.39 Other disorders of phosphorus metabolism; G00.9 Bacterial meningitis, unspecified; K76.0 Fatty (change of) liver, not elsewhere classified; Z20.822 Contact with and (suspected) exposure to COVID-19; Z87.11 Personal history of peptic ulcer disease; K57.30 Diverticulosis of large intestine without perforation or abscess without bleeding; D64.9 Anemia, unspecified; D75.89 Other specified diseases of blood and blood-forming organs; E87.6 Hypokalemia; E80.6 Other disorders of bilirubin metabolism; M51.36 Other intervertebral disc degeneration, lumbar region; R16.1 Splenomegaly, not elsewhere classified; D72.819 Decreased white blood cell count, unspecified; E83.42 Hypomagnesemia; E86.1 Hypovolemia; G89.29 Other chronic pain; M54.30 Sciatica, unspecified side; K21.9 Gastro-esophageal reflux disease without esophagitis; K74.60 Unspecified cirrhosis of liver; Z74.01 Bed confinement status; Z79.82 Long term (current) use of aspirin
CPT/HCPCS: 36415; 62270; 70490-TC; 71045-TC; 71250-TC; 72131-TC; 80048-TC; 80053-TC; 80061-TC; 80076-TC; 80202-TC; 81001; 82378; 82607-TC; 82728-TC; 82784; 83540-TC; 83605-TC; 83615-TC; 83735-TC; 84100-TC; 84155; 84165; 84443-TC; 84484-TC; 85025-TC; 85610-TC; 85730-TC; 86140-TC; 86225; 86235; 86334; 86431-TC; 86592; 86706; 86788; 86789; 86803; 87040-TC; 87086-TC; 87186-TC; 87340; 87806; 89051-TC; 93307-TC; 93970-TC; 97110-TC; 97112-TC; 97116-TC; 97530-TC; 97535-TC; A4223; C9113; G0378; J0133; J0290; J0692; J0696; J1170; J1650; J1885; J2405; J2916; J3370; J3480; J3490; J7030; J7040; J7050; J7060

== ENCOUNTER 2023-09-12 10:13 | Inpatient (IN) | payer OTHER ==
[~2023-09-12] VITALS: Ht 165.1 cm; Wt 104.3 kg
[~2023-09-12 10:13] MED LIST: ASPI-1169 PO; CEFT2VIA14 IV; ENOX40DI SQ; NYST5ORA PO; PANT40TA49 PO
[2023-09-12 11:04] LABS: BASOPHILS % (AUTO) 0.4 % (0.0-2.0); EOSINOPHILS # (AUTO) 0.1 K/uL (0.0-0.7); EOSINOPHILS % (AUTO) 1.8 % (0.0-6.0); HEMATOCRIT 23 % (33-45); HEMOGLOBIN 7.8 g/dL (11.5-14.8); LYMPHOCYTES # (AUTO) 0.7 K/uL (0.8-4.8); LYMPHOCYTES % (AUTO) 23.2 % (20.0-44.0); MEAN CORPUSCULAR HEMOGLOBIN 33 PG (26.0-33.0); MEAN CORPUSCULAR HGB CONC 34 g/dl (31.0-36.0); MEAN CORPUSCULAR VOLUME 96 fL (82-100); MONOCYTES # (AUTO) 0.6 K/uL (0.1-1.30); MONOCYTES % (AUTO) 18.5 % (2.0-12.0); NEUTROPHILS # (AUTO) 1.7 K/uL (1.8-8.9); NEUTROPHILS % (AUTO) 56.1 % (43.0-81.0); PLATELET COUNT (AUTO) 134 K/uL (150-450); RED BLOOD CELL COUNT(AUTO) 2.36 MIL/uL (4.0-5.2); RED CELL DISTRIBUTION WIDTH 14.8 % (11.5-15.0)
[2023-09-12] MEDS ORDERED: NYST5ORA PO (11:08)
[2023-09-12] MEDS ORDERED: NORM10VI2 IV (11:08)
[2023-09-12] MEDS ORDERED: ACET-868 PO (11:08)
[2023-09-12] MEDS ORDERED: ENOX40DI9 SQ (11:08)
[2023-09-12] MEDS ORDERED: OMEP20CA15 PO (11:08)
[2023-09-12] MEDS ORDERED: PANT40TA2 PO (11:08)
[2023-09-12] MEDS ORDERED: ASPI-1169 PO (11:08)
[2023-09-12] MEDS ORDERED: CEFT2VIA64 IV (11:08)
[2023-09-12 11:20] LABS: CALCIUM, SERUM 8.2 mg/dL (8.5-10.1); CARBON DIOXIDE 25 mmol/L (21-32); CHLORIDE 103 mmol/L (98-107); GLUCOSE 96 mg/dL (74-106); POTASSIUM 4.1 mmol/L (3.5-5.1); SODIUM SERUM 134 mmol/L (136-145); UREA NITROGEN, BLOOD 15 mg/dL (7-18)
[2023-09-12 11:21] LABS: INR 1.26 (0.91-1.10); PARTIAL THROMBOPLASTIN TIME 33.1 SEC (24.3-34.3); PROTHROMBIN TIME 13.2 SECS (9.2-11.1)
[2023-09-12 11:25] LABS: ALANINE AMINOTRANSFERASE 33 U/L (12-78); ALKALINE PHOSPHATASE 129 U/L (46-116); ASPARTATE AMINOTRANSFERASE 51 U/L (15-37); BILIRUBIN,DIRECT 0.1 mg/dL (0.0-0.2); BILIRUBIN,TOTAL 0.3 mg/dL (0.2-1.0); TOTAL PROTEIN, SERUM 8.6 g/dL (6.4-8.2)
[2023-09-12 11:27] LABS: ALBUMIN 1.4 g/dL (3.4-5.0)
[2023-09-12 11:28] LABS: LACTIC ACID 1.3 mmol/L (0.4-2.0)
[2023-09-12] MEDS ORDERED: MORPHINE SULFATE INJ 2 MG/ML DISP.SYRIN IV ONE (11:30)
[2023-09-12] MEDS ORDERED: MORPHINE SULFATE INJ 4 MG/ML DISP.SYRIN ONE (11:59)
[2023-09-12 12:10] LABS: APPEARANCE,URINE SLIGHTLY CLOUDY (CLEAR); BILIRUBIN,URINE NEGATIVE (NEGATIVE); BLOOD, URINE 3+ Ery/uL (NEGATIVE); COLOR,URINE YELLOW (YELLOW); KETONES,URINE NEGATIVE (NEGATIVE); LEUKOCYTE ESTERASE ,URINE TRACE (NEGATIVE); NITRITE, URINE NEGATIVE (NEGATIVE); PH,URINE 7.5 (5.0-8.0); PROTEIN,URINE 2+ mg/dl (NEGATIVE); UGLUCOSE NEGATIVE (NEGATIVE); UROBILINOGEN,URINE 0.2 EU/dL (0.2)
[2023-09-12] MEDS ORDERED: NORMAL SALINE FLUSH 10 ML SYR IV SCH (12:30)
[2023-09-12] MEDS ORDERED: ACETAMINOPHEN 325 MG TABLET PO PRN (12:30)
[2023-09-12] MEDS ORDERED: ONDANSETRON HCL/PF 4 MG/2 ML VIAL IVP PRN (12:30)
[2023-09-12] MEDS ORDERED: Medication Not On Formulary EA (Ceftriaxone Sodium (Ceftriaxone) 2 GM) IV SCH (12:30)
[2023-09-12] MEDS ORDERED: ALBUTEROL FS 2.5 MG/0.5 ML VIAL.NEB NEB PRN (12:30)
[2023-09-12] MEDS ORDERED: FUROSEMIDE 40 MG/4 ML VIAL IV ONE (12:30)
[2023-09-12] MEDS ORDERED: FUROSEMIDE 40 MG/4 ML VIAL ONE (12:31)
[2023-09-12 13:29] LABS: ADD URINE CULTURE YES; BACTERIA,URINE Moderate /HPF (None Seen); RBC,URINE 51-80 /HPF (0-2); SQUAMOUS EPITHELIAL CELL,UR Moderate /HPF (None Seen); WBC,URINE 0-3 /HPF (0-3)
[2023-09-12 13:55] VITALS: BP 142/81; TEMP 98.6; O2SAT 100
[2023-09-12 14:00] VITALS: BP 142/81; TEMP 98.6; O2SAT 100
[2023-09-12 16:00] VITALS: BP 128/74; TEMP 98.8; O2SAT 98
[2023-09-12] MEDS: MORPHINE SULFATE INJ 2 MG/ML DISP.SYRIN IV PRN ×2 (17:10→22:48)
[2023-09-12] MEDS: NYSTATIN (PYXIS) 500,000 UNIT/5 ML ORAL.SUSP PO SCH (17:10)
[2023-09-12 17:48] VITALS: TEMP 98.9
[2023-09-12] MEDS: ALBUMIN 25% 25 GM in PREMIX 1 EA IV SCH (17:54)
[2023-09-12 20:00] VITALS: BP 141/73; TEMP 100.4; O2SAT 100
[2023-09-12 20:05] LABS: HEMOGLOBIN 7.8 g/dL (11.5-14.8)
[2023-09-12] MEDS: CEFTRIAXONE 2 G in IV D5W 100 ML IV SCH (20:16)
[2023-09-13] VITALS (11 sets, daily range): BP systolic 117–144; BP diastolic 47–83; TEMP 98.1–100.2; O2SAT 95–100
[2023-09-13 02:11] LABS: HEMOGLOBIN 7.2 g/dL (11.5-14.8)
[2023-09-13] MEDS: FUROSEMIDE 40 MG/4 ML VIAL IV SCH ×2 (05:18→08:33)
[2023-09-13] MEDS: ALBUMIN 25% 25 GM in PREMIX 1 EA IV SCH (05:40)
[2023-09-13 06:26] LABS: BASOPHILS % (AUTO) 0.5 % (0.0-2.0); EOSINOPHILS # (AUTO) 0.1 K/uL (0.0-0.7); EOSINOPHILS % (AUTO) 2.1 % (0.0-6.0); HEMATOCRIT 22 % (33-45); HEMOGLOBIN 7.5 g/dL (11.5-14.8); LYMPHOCYTES # (AUTO) 0.6 K/uL (0.8-4.8); LYMPHOCYTES % (AUTO) 23.4 % (20.0-44.0); MEAN CORPUSCULAR HEMOGLOBIN 33 PG (26.0-33.0); MEAN CORPUSCULAR HGB CONC 34 g/dl (31.0-36.0); MEAN CORPUSCULAR VOLUME 98 fL (82-100); MONOCYTES # (AUTO) 0.4 K/uL (0.1-1.30); MONOCYTES % (AUTO) 15.7 % (2.0-12.0); NEUTROPHILS # (AUTO) 1.5 K/uL (1.8-8.9); NEUTROPHILS % (AUTO) 58.3 % (43.0-81.0); PLATELET COUNT (AUTO) 122 K/uL (150-450); RED BLOOD CELL COUNT(AUTO) 2.25 MIL/uL (4.0-5.2); WHITE BLOOD COUNT (AUTO) 2.6 K/uL (4.3-11.0)
[2023-09-13 06:59] LABS: ALBUMIN 1.8 g/dL (3.4-5.0); BILIRUBIN,TOTAL 0.4 mg/dL (0.2-1.0); CALCIUM, SERUM 8.2 mg/dL (8.5-10.1); MAGNESIUM 1.7 mg/dL (1.8-2.4); PHOSPHORUS 4.6 mg/dL (2.5-4.9); POTASSIUM 3.8 mmol/L (3.5-5.1); TOTAL PROTEIN, SERUM 8.9 g/dL (6.4-8.2)
[2023-09-13] MEDS: NYSTATIN (PYXIS) 500,000 UNIT/5 ML ORAL.SUSP PO SCH ×3 (08:32→16:44)
[2023-09-13] MEDS: CEFTRIAXONE 2 G in IV D5W 100 ML IV SCH ×2 (08:33→20:35)
[2023-09-13] MEDS: ASPIRIN 81 MG TAB.CHEW PO SCH (08:33)
[2023-09-13] MEDS: PANTOPRAZOLE 40 MG TABLET.DR PO SCH (08:34)
[2023-09-13] MEDS: MORPHINE SULFATE INJ 2 MG/ML DISP.SYRIN IV PRN ×3 (08:43→22:44)
[2023-09-13] MEDS: IPRATROPIUM NEB FS 0.5 MG/2.5 ML AMPUL.NEB NEB SCH ×3 (08:48→20:27)
[2023-09-13] MEDS: ALBUTEROL FS 2.5 MG/3 ML VIAL.NEB NEB SCH ×3 (08:49→20:27)
[2023-09-13] MEDS ORDERED: OMEPRAZOLE 20 MG CAPSULE.DR PO SCH (09:00)
[2023-09-13 09:11] LABS: LYMPHOCYTES % (MANUAL) 17 % (16-48); MONOCYTES % (MANUAL) 12 % (0-11.0); NEUTROPHILS % (MANUAL) 71 (42-76); PLATELET ESTIMATE DECREASED
[2023-09-13 09:12] LABS: ANISOCYTOSIS 1+
[2023-09-13 11:14] LABS: HEMOGLOBIN 7.6 g/dL (11.5-14.8)
[2023-09-13] MEDS ORDERED: MAGNESIUM OXIDE 400 MG TABLET PO ONE (12:00)
[2023-09-13 15:54] LABS: HIV-1 p24 ANTIGEN NON REACTIVE (NONREACTIVE); HIV-1/2 ANTIBODY NON REACTIVE (NONREACTIVE)
[2023-09-13 19:15] LABS: HEMOGLOBIN 7.1 g/dL (11.5-14.8)
[2023-09-14] VITALS (10 sets, daily range): BP systolic 127–128; BP diastolic 80–82; TEMP 99.1–99.3; O2SAT 96–99
[2023-09-14] MEDS: IPRATROPIUM NEB FS 0.5 MG/2.5 ML AMPUL.NEB NEB SCH ×4 (01:53→20:20)
[2023-09-14] MEDS: ALBUTEROL FS 2.5 MG/3 ML VIAL.NEB NEB SCH ×4 (01:53→20:20)
[2023-09-14 08:57] LABS: BASOPHILS % (AUTO) 0.5 % (0.0-2.0); EOSINOPHILS % (AUTO) 2.2 % (0.0-6.0); HEMATOCRIT 21 % (33-45); HEMOGLOBIN 7.2 g/dL (11.5-14.8); LYMPHOCYTES # (AUTO) 0.4 K/uL (0.8-4.8); LYMPHOCYTES % (AUTO) 21.1 % (20.0-44.0); MEAN CORPUSCULAR HEMOGLOBIN 33 PG (26.0-33.0); MEAN CORPUSCULAR HGB CONC 34 g/dl (31.0-36.0); MEAN CORPUSCULAR VOLUME 98 fL (82-100); MONOCYTES # (AUTO) 0.3 K/uL (0.1-1.30); MONOCYTES % (AUTO) 16.2 % (2.0-12.0); NEUTROPHILS # (AUTO) 1.2 K/uL (1.8-8.9); PLATELET COUNT (AUTO) 100 K/uL (150-450); RED BLOOD CELL COUNT(AUTO) 2.14 MIL/uL (4.0-5.2); WHITE BLOOD COUNT (AUTO) 2.1 K/uL (4.3-11.0)
[2023-09-14] MEDS: FUROSEMIDE 40 MG/4 ML VIAL IV SCH (09:00)
[2023-09-14] MEDS: ASPIRIN 81 MG TAB.CHEW PO SCH (09:00)
[2023-09-14] MEDS: CEFTRIAXONE 2 G in IV D5W 100 ML IV SCH ×2 (09:00→21:19)
[2023-09-14] MEDS: NYSTATIN (PYXIS) 500,000 UNIT/5 ML ORAL.SUSP PO SCH ×3 (09:00→16:30)
[2023-09-14] MEDS: PANTOPRAZOLE 40 MG TABLET.DR PO SCH (09:00)
[2023-09-14] MEDS: MORPHINE SULFATE INJ 2 MG/ML DISP.SYRIN IV PRN (09:20)
[2023-09-14 09:33] LABS: CALCIUM, SERUM 7.9 mg/dL (8.5-10.1); POTASSIUM 4.1 mmol/L (3.5-5.1)
[2023-09-14 09:39] LABS: ALBUMIN 1.6 g/dL (3.4-5.0); BILIRUBIN,TOTAL 0.3 mg/dL (0.2-1.0); TOTAL PROTEIN, SERUM 8.2 g/dL (6.4-8.2)
[2023-09-14 09:58] LABS: EOSINOPHILS % (MANUAL) 4 % (0-4); LYMPHOCYTES % (MANUAL) 15 % (16-48); MONOCYTES % (MANUAL) 10 % (0-11.0); NEUTROPHILS % (MANUAL) 71 (42-76); PLATELET ESTIMATE DECREASED
[2023-09-14] MEDS ORDERED: MAGNESIUM OXIDE 400 MG TABLET PO ONE (10:30)
[2023-09-14] MEDS ORDERED: NALOXONE HCL 0.4 MG/ML AMPUL IV PRN (12:00)
[2023-09-14] MEDS ORDERED: oxyCODONE IR immediate release 5 MG PO PRN (12:30)
[2023-09-14] MEDS: HYDROMORPHONE 1 MG/1 ML DISP.SYRIN IV PRN ×2 (12:44→18:17)
[2023-09-14] MEDS ORDERED: HYDROMORPHONE 1 MG/1 ML DISP.SYRIN IV ONE (13:00)
[2023-09-14 14:06] LABS: CSF GLUCOSE 57 mg/dL (40-70); CSF PROTEIN 73.05 mg/dL (15-45)
[2023-09-14 15:32] LABS: CSF APPEARANCE CLEAR (CLEAR); CSF COLOR COLORLESS (COLORLESS); CSF WHITE BLOOD CELL COUNT 9 /cumm (0-5)
[2023-09-14] MEDS: CLOTRIMAZOLE 1% 15 GM TUBE TP SCH (16:30)
[2023-09-14 16:44] LABS: CSF WHITE BLOOD CELL COUNT 12 /cumm (0-5)
[2023-09-15] VITALS (10 sets, daily range): BP systolic 114–122; BP diastolic 64; TEMP 97.6–98.1; O2SAT 94–99
[2023-09-15] MEDS: ALBUTEROL FS 2.5 MG/3 ML VIAL.NEB NEB SCH ×4 (01:30→20:24)
[2023-09-15] MEDS: IPRATROPIUM NEB FS 0.5 MG/2.5 ML AMPUL.NEB NEB SCH ×4 (01:30→20:24)
[2023-09-15 07:03] LABS: BASOPHILS % (AUTO) 0.4 % (0.0-2.0); EOSINOPHILS # (AUTO) 0.1 K/uL (0.0-0.7); EOSINOPHILS % (AUTO) 2.3 % (0.0-6.0); HEMATOCRIT 21 % (33-45); HEMOGLOBIN 7.2 g/dL (11.5-14.8); LYMPHOCYTES # (AUTO) 0.5 K/uL (0.8-4.8); MEAN CORPUSCULAR HEMOGLOBIN 33 PG (26.0-33.0); MEAN CORPUSCULAR HGB CONC 34 g/dl (31.0-36.0); MEAN CORPUSCULAR VOLUME 98 fL (82-100); MONOCYTES # (AUTO) 0.4 K/uL (0.1-1.30); NEUTROPHILS # (AUTO) 1.4 K/uL (1.8-8.9); NEUTROPHILS % (AUTO) 58.3 % (43.0-81.0); PLATELET COUNT (AUTO) 102 K/uL (150-450); RED BLOOD CELL COUNT(AUTO) 2.15 MIL/uL (4.0-5.2); RED CELL DISTRIBUTION WIDTH 15.3 % (11.5-15.0); WHITE BLOOD COUNT (AUTO) 2.4 K/uL (4.3-11.0)
[2023-09-15 07:24] LABS: POTASSIUM 4.1 mmol/L (3.5-5.1)
[2023-09-15 07:30] LABS: ALBUMIN 1.6 g/dL (3.4-5.0); BILIRUBIN,TOTAL 0.4 mg/dL (0.2-1.0); TOTAL PROTEIN, SERUM 8.2 g/dL (6.4-8.2)
[2023-09-15 08:08] LABS: BAND % (MANUAL) 1 % (0.0-5.0); LYMPHOCYTES % (MANUAL) 20 % (16-48); MONOCYTES % (MANUAL) 10 % (0-11.0); NEUTROPHILS % (MANUAL) 69 (42-76)
[2023-09-15 08:10] LABS: PLATELET ESTIMATE DECREASED
[2023-09-15] MEDS: CLOTRIMAZOLE 1% 15 GM TUBE TP SCH ×2 (08:59→16:20)
[2023-09-15] MEDS: ASPIRIN 81 MG TAB.CHEW PO SCH (08:59)
[2023-09-15] MEDS: PANTOPRAZOLE 40 MG TABLET.DR PO SCH (09:00)
[2023-09-15] MEDS: NYSTATIN (PYXIS) 500,000 UNIT/5 ML ORAL.SUSP PO SCH ×3 (09:00→16:18)
[2023-09-15] MEDS: FUROSEMIDE 40 MG/4 ML VIAL IV SCH (09:00)
[2023-09-15] MEDS: CEFTRIAXONE 2 G in IV D5W 100 ML IV SCH ×2 (09:01→20:30)
[2023-09-15] MEDS: acetaZOLAMIDE 250 MG TABLET PO SCH (16:19)
[2023-09-15] MEDS: ACETAMINOPHEN 325 MG TABLET PO PRN (21:35)
[2023-09-16] VITALS (8 sets, daily range): BP systolic 113–122; BP diastolic 67–71; TEMP 98.2–99; O2SAT 97–99
[2023-09-16] MEDS: ALBUTEROL FS 2.5 MG/3 ML VIAL.NEB NEB SCH ×4 (01:52→20:00)
[2023-09-16] MEDS: IPRATROPIUM NEB FS 0.5 MG/2.5 ML AMPUL.NEB NEB SCH ×4 (01:53→20:00)
[2023-09-16 06:34] LABS: BASOPHILS % (AUTO) 0.4 % (0.0-2.0); EOSINOPHILS # (AUTO) 0.1 K/uL (0.0-0.7); HEMATOCRIT 21 % (33-45); HEMOGLOBIN 7.1 g/dL (11.5-14.8); LYMPHOCYTES # (AUTO) 0.4 K/uL (0.8-4.8); LYMPHOCYTES % (AUTO) 26.8 % (20.0-44.0); MEAN CORPUSCULAR HEMOGLOBIN 33 PG (26.0-33.0); MEAN CORPUSCULAR HGB CONC 34 g/dl (31.0-36.0); MEAN CORPUSCULAR VOLUME 98 fL (82-100); MONOCYTES # (AUTO) 0.3 K/uL (0.1-1.30); MONOCYTES % (AUTO) 19.6 % (2.0-12.0); NEUTROPHILS # (AUTO) 0.8 K/uL (1.8-8.9); NEUTROPHILS % (AUTO) 50.2 % (43.0-81.0); PLATELET COUNT (AUTO) 94 K/uL (150-450); RED BLOOD CELL COUNT(AUTO) 2.14 MIL/uL (4.0-5.2); RED CELL DISTRIBUTION WIDTH 15.1 % (11.5-15.0)
[2023-09-16] MEDS: HYDROMORPHONE 1 MG/1 ML DISP.SYRIN IV PRN (06:37)
[2023-09-16 06:47] LABS: CALCIUM, SERUM 8.1 mg/dL (8.5-10.1); POTASSIUM 3.7 mmol/L (3.5-5.1)
[2023-09-16 06:52] LABS: WHITE BLOOD COUNT (AUTO) 1.7 K/uL (4.3-11.0)
[2023-09-16 06:54] LABS: ALBUMIN 1.5 g/dL (3.4-5.0); BILIRUBIN,TOTAL 0.3 mg/dL (0.2-1.0); TOTAL PROTEIN, SERUM 8.1 g/dL (6.4-8.2)
[2023-09-16] MEDS: ASPIRIN 81 MG TAB.CHEW PO SCH (08:34)
[2023-09-16] MEDS: NYSTATIN (PYXIS) 500,000 UNIT/5 ML ORAL.SUSP PO SCH ×3 (08:34→17:38)
[2023-09-16] MEDS: PANTOPRAZOLE 40 MG TABLET.DR PO SCH (08:34)
[2023-09-16] MEDS: acetaZOLAMIDE 250 MG TABLET PO SCH ×2 (08:34→17:38)
[2023-09-16] MEDS: CLOTRIMAZOLE 1% 15 GM TUBE TP SCH ×2 (08:35→17:39)
[2023-09-16] MEDS: FUROSEMIDE 40 MG/4 ML VIAL IV SCH (08:44)
[2023-09-16] MEDS: CEFTRIAXONE 2 G in IV D5W 100 ML IV SCH ×2 (08:44→20:12)
[2023-09-16 14:29] LABS: EOSINOPHILS % (MANUAL) 1 % (0-4); MONOCYTES % (MANUAL) 13 % (0-11.0)
[2023-09-16 14:30] LABS: LYMPHOCYTES % (MANUAL) 20 % (16-48); NEUTROPHILS % (MANUAL) 66 (42-76); PLATELET ESTIMATE DECREASED
[2023-09-16 16:07] LABS: *CRYPTOCOCCUS AG, CSF Negative (Negative)
[2023-09-16 17:07] LABS: COCCIDIOIDES Abs, IgG,EIA 4.8 EIA Units (.); COCCIDIOIDES Abs, IgM,EIA 0.2 EIA Units (.)
[2023-09-16] MEDS: ACETAMINOPHEN 325 MG TABLET PO PRN (20:23)
[2023-09-17] VITALS (9 sets, daily range): BP systolic 116–125; BP diastolic 60–72; TEMP 97.9–98.2; O2SAT 94–100
[2023-09-17] MEDS: ALBUTEROL FS 2.5 MG/3 ML VIAL.NEB NEB SCH ×4 (01:37→20:25)
[2023-09-17] MEDS: IPRATROPIUM NEB FS 0.5 MG/2.5 ML AMPUL.NEB NEB SCH ×4 (01:37→20:25)
[2023-09-17 06:23] LABS: BASOPHILS % (AUTO) 0.4 % (0.0-2.0); EOSINOPHILS # (AUTO) 0.1 K/uL (0.0-0.7); EOSINOPHILS % (AUTO) 3.1 % (0.0-6.0); HEMATOCRIT 21 % (33-45); HEMOGLOBIN 7.2 g/dL (11.5-14.8); LYMPHOCYTES # (AUTO) 0.4 K/uL (0.8-4.8); MEAN CORPUSCULAR HEMOGLOBIN 34 PG (26.0-33.0); MEAN CORPUSCULAR HGB CONC 35 g/dl (31.0-36.0); MEAN CORPUSCULAR VOLUME 98 fL (82-100); MONOCYTES # (AUTO) 0.4 K/uL (0.1-1.30); MONOCYTES % (AUTO) 18.6 % (2.0-12.0); NEUTROPHILS # (AUTO) 1.1 K/uL (1.8-8.9); NEUTROPHILS % (AUTO) 55.9 % (43.0-81.0); PLATELET COUNT (AUTO) 104 K/uL (150-450); RED BLOOD CELL COUNT(AUTO) 2.12 MIL/uL (4.0-5.2); RED CELL DISTRIBUTION WIDTH 14.6 % (11.5-15.0)
[2023-09-17 06:36] LABS: ALBUMIN 1.5 g/dL (3.4-5.0); BILIRUBIN,TOTAL 0.3 mg/dL (0.2-1.0); CALCIUM, SERUM 7.8 mg/dL (8.5-10.1); CREATININE 1.1 mg/dL (0.6-1.3); MAGNESIUM 1.7 mg/dL (1.8-2.4); PHOSPHORUS 4.1 mg/dL (2.5-4.9); POTASSIUM 3.8 mmol/L (3.5-5.1); TOTAL PROTEIN, SERUM 8.3 g/dL (6.4-8.2)
[2023-09-17] MEDS: FUROSEMIDE 40 MG/4 ML VIAL IV SCH (08:29)
[2023-09-17] MEDS: ASPIRIN 81 MG TAB.CHEW PO SCH (08:30)
[2023-09-17] MEDS: CEFTRIAXONE 2 G in IV D5W 100 ML IV SCH ×2 (08:30→20:13)
[2023-09-17] MEDS: NYSTATIN (PYXIS) 500,000 UNIT/5 ML ORAL.SUSP PO SCH ×3 (08:34→16:51)
[2023-09-17] MEDS: PANTOPRAZOLE 40 MG TABLET.DR PO SCH (08:35)
[2023-09-17] MEDS: TOPIRAMATE 25 MG TABLET PO SCH ×2 (08:36→20:50)
[2023-09-17] MEDS: CLOTRIMAZOLE 1% 15 GM TUBE TP SCH ×2 (08:37→17:00)
[2023-09-17] MEDS: acetaZOLAMIDE 250 MG TABLET PO SCH ×2 (09:06→16:51)
[2023-09-17] MEDS ORDERED: IV NS 0.9% 250 ML IV ONE (10:30)
[2023-09-17] MEDS ORDERED: IOHEXOL-300 100 ML VIAL IV ONE (10:30)
[2023-09-17] MEDS ORDERED: MAGNESIUM OXIDE 400 MG TABLET PO ONE (11:00)
[2023-09-17] MEDS: HYDROMORPHONE 1 MG/1 ML DISP.SYRIN IV PRN (12:14)
[2023-09-17 16:30] LABS: EOSINOPHILS % (MANUAL) 2 % (0-4); LYMPHOCYTES % (MANUAL) 20 % (16-48); MONOCYTES % (MANUAL) 18 % (0-11.0); NEUTROPHILS % (MANUAL) 60 (42-76); PLATELET ESTIMATE DECREASED
[2023-09-18] VITALS (11 sets, daily range): BP systolic 117–124; BP diastolic 64–76; TEMP 98–98.8; O2SAT 96–100
[2023-09-18] MEDS: ALBUTEROL FS 2.5 MG/3 ML VIAL.NEB NEB SCH ×4 (01:26→19:49)
[2023-09-18] MEDS: IPRATROPIUM NEB FS 0.5 MG/2.5 ML AMPUL.NEB NEB SCH ×4 (01:26→19:49)
[2023-09-18 07:12] LABS: BASOPHILS % (AUTO) 0.5 % (0.0-2.0); EOSINOPHILS # (AUTO) 0.1 K/uL (0.0-0.7); EOSINOPHILS % (AUTO) 3.6 % (0.0-6.0); HEMATOCRIT 22 % (33-45); HEMOGLOBIN 7.4 g/dL (11.5-14.8); LYMPHOCYTES # (AUTO) 0.5 K/uL (0.8-4.8); LYMPHOCYTES % (AUTO) 26.5 % (20.0-44.0); MEAN CORPUSCULAR HEMOGLOBIN 33 PG (26.0-33.0); MEAN CORPUSCULAR HGB CONC 34 g/dl (31.0-36.0); MEAN CORPUSCULAR VOLUME 98 fL (82-100); MONOCYTES # (AUTO) 0.4 K/uL (0.1-1.30); MONOCYTES % (AUTO) 19.9 % (2.0-12.0); NEUTROPHILS % (AUTO) 49.5 % (43.0-81.0); PLATELET COUNT (AUTO) 111 K/uL (150-450); RED BLOOD CELL COUNT(AUTO) 2.24 MIL/uL (4.0-5.2); RED CELL DISTRIBUTION WIDTH 15.4 % (11.5-15.0)
[2023-09-18 07:18] LABS: ALBUMIN 1.5 g/dL (3.4-5.0); BILIRUBIN,TOTAL 0.3 mg/dL (0.2-1.0); CALCIUM, SERUM 7.8 mg/dL (8.5-10.1); CREATININE 0.9 mg/dL (0.6-1.3); MAGNESIUM 1.7 mg/dL (1.8-2.4); PHOSPHORUS 3.9 mg/dL (2.5-4.9); POTASSIUM 3.5 mmol/L (3.5-5.1); TOTAL PROTEIN, SERUM 8.4 g/dL (6.4-8.2)
[2023-09-18] MEDS: ASPIRIN 81 MG TAB.CHEW PO SCH (08:42)
[2023-09-18] MEDS: NYSTATIN (PYXIS) 500,000 UNIT/5 ML ORAL.SUSP PO SCH ×3 (08:43→17:15)
[2023-09-18] MEDS: PANTOPRAZOLE 40 MG TABLET.DR PO SCH (08:43)
[2023-09-18] MEDS: TOPIRAMATE 25 MG TABLET PO SCH ×2 (08:43→20:25)
[2023-09-18] MEDS: FUROSEMIDE 40 MG/4 ML VIAL IV SCH (08:43)
[2023-09-18] MEDS: CLOTRIMAZOLE 1% 15 GM TUBE TP SCH ×2 (08:44→17:18)
[2023-09-18 09:31] LABS: BAND % (MANUAL) 2 % (0.0-5.0); EOSINOPHILS % (MANUAL) 1 % (0-4); LYMPHOCYTES % (MANUAL) 29 % (16-48); MONOCYTES % (MANUAL) 14 % (0-11.0); NEUTROPHILS % (MANUAL) 54 (42-76)
[2023-09-18 09:32] LABS: PLATELET ESTIMATE DECREASED
[2023-09-18] MEDS: CEFTRIAXONE 2 G in IV D5W 100 ML IV SCH (09:45)
[2023-09-18] MEDS ORDERED: MAGNESIUM OXIDE 400 MG TABLET PO ONE (10:00)
[2023-09-18] MEDS: acetaZOLAMIDE 250 MG TABLET PO SCH ×2 (10:00→17:15)
[2023-09-18] MEDS ORDERED: BISACODYL (5 MG) 5 MG TABLET.DR PO PRN (11:30)
[2023-09-18] MEDS: HYDROMORPHONE 1 MG/1 ML DISP.SYRIN IV PRN (12:18)
[2023-09-19] VITALS (10 sets, daily range): BP systolic 104–130; BP diastolic 58–69; TEMP 98–98.8; O2SAT 94–100
[2023-09-19] MEDS: ALBUTEROL FS 2.5 MG/3 ML VIAL.NEB NEB SCH ×4 (00:34→20:17)
[2023-09-19] MEDS: IPRATROPIUM NEB FS 0.5 MG/2.5 ML AMPUL.NEB NEB SCH ×4 (00:34→20:17)
[2023-09-19 07:52] LABS: BASOPHILS % (AUTO) 0.4 % (0.0-2.0); HEMATOCRIT 22 % (33-45); HEMOGLOBIN 7.7 g/dL (11.5-14.8); LYMPHOCYTES # (AUTO) 0.6 K/uL (0.8-4.8); MEAN CORPUSCULAR HEMOGLOBIN 34 PG (26.0-33.0); MEAN CORPUSCULAR HGB CONC 34 g/dl (31.0-36.0); MEAN CORPUSCULAR VOLUME 99 fL (82-100); MONOCYTES # (AUTO) 0.6 K/uL (0.1-1.30); MONOCYTES % (AUTO) 21.2 % (2.0-12.0); NEUTROPHILS # (AUTO) 1.6 K/uL (1.8-8.9); NEUTROPHILS % (AUTO) 56.4 % (43.0-81.0); PLATELET COUNT (AUTO) 125 K/uL (150-450); RED BLOOD CELL COUNT(AUTO) 2.27 MIL/uL (4.0-5.2); RED CELL DISTRIBUTION WIDTH 15.1 % (11.5-15.0); WHITE BLOOD COUNT (AUTO) 2.8 K/uL (4.3-11.0)
[2023-09-19 07:56] LABS: ALBUMIN 1.6 g/dL (3.4-5.0); BILIRUBIN,TOTAL 0.5 mg/dL (0.2-1.0); CALCIUM, SERUM 7.8 mg/dL (8.5-10.1); CREATININE 0.8 mg/dL (0.6-1.3); MAGNESIUM 1.7 mg/dL (1.8-2.4); PHOSPHORUS 3.6 mg/dL (2.5-4.9); POTASSIUM 3.2 mmol/L (3.5-5.1); TOTAL PROTEIN, SERUM 8.5 g/dL (6.4-8.2)
[2023-09-19] MEDS ORDERED: MAGNESIUM OXIDE 400 MG TABLET PO ONE (09:30)
[2023-09-19 09:45] LABS: EOSINOPHILS % (MANUAL) 3 % (0-4); LYMPHOCYTES % (MANUAL) 20 % (16-48); MONOCYTES % (MANUAL) 14 % (0-11.0); NEUTROPHILS % (MANUAL) 63 (42-76); PLATELET ESTIMATE DECREASED
[2023-09-19] MEDS: TOPIRAMATE 25 MG TABLET PO SCH ×2 (09:59→21:03)
[2023-09-19] MEDS: FUROSEMIDE 40 MG/4 ML VIAL IV SCH (09:59)
[2023-09-19] MEDS: NYSTATIN (PYXIS) 500,000 UNIT/5 ML ORAL.SUSP PO SCH ×4 (10:00→18:15)
[2023-09-19] MEDS: PANTOPRAZOLE 40 MG TABLET.DR PO SCH (10:00)
[2023-09-19] MEDS: acetaZOLAMIDE 250 MG TABLET PO SCH ×3 (10:01→18:15)
[2023-09-19] MEDS: ASPIRIN 81 MG TAB.CHEW PO SCH (10:01)
[2023-09-19] MEDS ORDERED: POTASSIUM CHLORIDE 20 MEQ TAB.PRT.SR PO ONE (10:30)
[2023-09-19] MEDS: CLOTRIMAZOLE 1% 15 GM TUBE TP SCH ×2 (10:46→17:00)
[2023-09-19] MEDS: HYDROMORPHONE 1 MG/1 ML DISP.SYRIN IV PRN (13:21)
[2023-09-20] VITALS (10 sets, daily range): BP systolic 99–121; BP diastolic 58–62; TEMP 98.1–100.4; O2SAT 96–100
[2023-09-20] MEDS: ALBUTEROL FS 2.5 MG/3 ML VIAL.NEB NEB SCH ×4 (01:05→20:16)
[2023-09-20] MEDS: IPRATROPIUM NEB FS 0.5 MG/2.5 ML AMPUL.NEB NEB SCH ×4 (01:05→20:16)
[2023-09-20 06:51] LABS: BASOPHILS % (AUTO) 0.5 % (0.0-2.0); EOSINOPHILS # (AUTO) 0.1 K/uL (0.0-0.7); EOSINOPHILS % (AUTO) 2.9 % (0.0-6.0); HEMATOCRIT 22 % (33-45); HEMOGLOBIN 7.6 g/dL (11.5-14.8); LYMPHOCYTES # (AUTO) 0.7 K/uL (0.8-4.8); LYMPHOCYTES % (AUTO) 23.2 % (20.0-44.0); MEAN CORPUSCULAR HEMOGLOBIN 33 PG (26.0-33.0); MEAN CORPUSCULAR HGB CONC 34 g/dl (31.0-36.0); MEAN CORPUSCULAR VOLUME 98 fL (82-100); MONOCYTES # (AUTO) 0.7 K/uL (0.1-1.30); MONOCYTES % (AUTO) 22.2 % (2.0-12.0); NEUTROPHILS # (AUTO) 1.6 K/uL (1.8-8.9); NEUTROPHILS % (AUTO) 51.2 % (43.0-81.0); PLATELET COUNT (AUTO) 129 K/uL (150-450); RED BLOOD CELL COUNT(AUTO) 2.28 MIL/uL (4.0-5.2); RED CELL DISTRIBUTION WIDTH 15.3 % (11.5-15.0); WHITE BLOOD COUNT (AUTO) 3.1 K/uL (4.3-11.0)
[2023-09-20 07:22] LABS: ALBUMIN 1.6 g/dL (3.4-5.0); BILIRUBIN,TOTAL 0.5 mg/dL (0.2-1.0); CALCIUM, SERUM 7.6 mg/dL (8.5-10.1); MAGNESIUM 1.8 mg/dL (1.8-2.4); POTASSIUM 3.5 mmol/L (3.5-5.1); TOTAL PROTEIN, SERUM 8.3 g/dL (6.4-8.2)
[2023-09-20] MEDS: NYSTATIN (PYXIS) 500,000 UNIT/5 ML ORAL.SUSP PO SCH ×3 (08:21→16:57)
[2023-09-20] MEDS: ASPIRIN 81 MG TAB.CHEW PO SCH ×2 (08:21→08:26)
[2023-09-20] MEDS: FUROSEMIDE 40 MG/4 ML VIAL IV SCH (08:22)
[2023-09-20] MEDS: PANTOPRAZOLE 40 MG TABLET.DR PO SCH ×2 (08:22→08:26)
[2023-09-20] MEDS: TOPIRAMATE 25 MG TABLET PO SCH ×3 (08:22→21:04)
[2023-09-20] MEDS: acetaZOLAMIDE 250 MG TABLET PO SCH ×3 (08:22→16:43)
[2023-09-20] MEDS: HYDROMORPHONE 1 MG/1 ML DISP.SYRIN IV PRN ×3 (08:23→21:03)
[2023-09-20] MEDS: CLOTRIMAZOLE 1% 15 GM TUBE TP SCH ×2 (08:43→17:18)
[2023-09-20 10:16] LABS: BAND % (MANUAL) 1 % (0.0-5.0); EOSINOPHILS % (MANUAL) 2 % (0-4); LYMPHOCYTES % (MANUAL) 21 % (16-48); MONOCYTES % (MANUAL) 29 % (0-11.0); NEUTROPHILS % (MANUAL) 47 (42-76); PLATELET ESTIMATE DECREASED
[2023-09-20 13:53] LABS: CSF PROTEIN 88.29 mg/dL (15-45)
[2023-09-20] MEDS: ACETAMINOPHEN 650 MG/SUPP.RECT RC PRN (14:25)
[2023-09-21] VITALS (9 sets, daily range): BP systolic 109–118; BP diastolic 58–75; TEMP 98.1–98.4; O2SAT 96–100
[2023-09-21] MEDS: IPRATROPIUM NEB FS 0.5 MG/2.5 ML AMPUL.NEB NEB SCH ×5 (01:30→20:42)
[2023-09-21] MEDS: ALBUTEROL FS 2.5 MG/3 ML VIAL.NEB NEB SCH ×5 (01:30→20:42)
[2023-09-21 07:19] LABS: BASOPHILS % (AUTO) 0.4 % (0.0-2.0); EOSINOPHILS # (AUTO) 0.2 K/uL (0.0-0.7); EOSINOPHILS % (AUTO) 5.7 % (0.0-6.0); HEMATOCRIT 22 % (33-45); HEMOGLOBIN 7.6 g/dL (11.5-14.8); LYMPHOCYTES # (AUTO) 0.6 K/uL (0.8-4.8); LYMPHOCYTES % (AUTO) 20.6 % (20.0-44.0); MEAN CORPUSCULAR HEMOGLOBIN 33 PG (26.0-33.0); MEAN CORPUSCULAR HGB CONC 34 g/dl (31.0-36.0); MEAN CORPUSCULAR VOLUME 97 fL (82-100); MONOCYTES # (AUTO) 0.5 K/uL (0.1-1.30); MONOCYTES % (AUTO) 17.9 % (2.0-12.0); NEUTROPHILS # (AUTO) 1.5 K/uL (1.8-8.9); NEUTROPHILS % (AUTO) 55.4 % (43.0-81.0); PLATELET COUNT (AUTO) 133 K/uL (150-450); RED BLOOD CELL COUNT(AUTO) 2.32 MIL/uL (4.0-5.2); RED CELL DISTRIBUTION WIDTH 15.5 % (11.5-15.0); WHITE BLOOD COUNT (AUTO) 2.7 K/uL (4.3-11.0)
[2023-09-21 07:31] LABS: ALBUMIN 1.5 g/dL (3.4-5.0); BILIRUBIN,TOTAL 0.5 mg/dL (0.2-1.0); CALCIUM, SERUM 7.6 mg/dL (8.5-10.1); CREATININE 0.8 mg/dL (0.6-1.3); POTASSIUM 3.7 mmol/L (3.5-5.1); TOTAL PROTEIN, SERUM 8.4 g/dL (6.4-8.2)
[2023-09-21] MEDS: ASPIRIN 81 MG TAB.CHEW PO SCH ×2 (09:00→09:41)
[2023-09-21] MEDS: CLOTRIMAZOLE 1% 15 GM TUBE TP SCH ×2 (09:00→16:48)
[2023-09-21] MEDS: PANTOPRAZOLE 40 MG TABLET.DR PO SCH ×2 (09:00→09:41)
[2023-09-21] MEDS: TOPIRAMATE 25 MG TABLET PO SCH ×2 (09:00→09:41)
[2023-09-21] MEDS: acetaZOLAMIDE 250 MG TABLET PO SCH ×2 (09:00→09:41)
[2023-09-21] MEDS: FUROSEMIDE 40 MG/4 ML VIAL IV SCH (09:39)
[2023-09-21] MEDS: HYDROMORPHONE 1 MG/1 ML DISP.SYRIN IV PRN (09:39)
[2023-09-21] MEDS: NYSTATIN (PYXIS) 500,000 UNIT/5 ML ORAL.SUSP PO SCH ×3 (09:40→16:42)
[2023-09-21 11:12] LABS: EOSINOPHILS % (MANUAL) 5 % (0-4); LYMPHOCYTES % (MANUAL) 20 % (16-48); MONOCYTES % (MANUAL) 16 % (0-11.0); NEUTROPHILS % (MANUAL) 59 (42-76); PLATELET ESTIMATE DECREASED
[2023-09-21] MEDS: ACETAMINOPHEN 650 MG/SUPP.RECT RC PRN (14:08)
[2023-09-21 18:18] LABS: THYROID STIMULATING HORMONE 5.702 uIU/mL (0.358-3.74)
[2023-09-22] VITALS (9 sets, daily range): BP systolic 106–115; BP diastolic 56–65; TEMP 98.4–99.5; O2SAT 96–100
[2023-09-22] MEDS: ALBUTEROL FS 2.5 MG/3 ML VIAL.NEB NEB SCH ×4 (00:59→20:28)
[2023-09-22] MEDS: IPRATROPIUM NEB FS 0.5 MG/2.5 ML AMPUL.NEB NEB SCH ×4 (00:59→20:28)
[2023-09-22 06:54] LABS: BASOPHILS % (AUTO) 0.4 % (0.0-2.0); EOSINOPHILS # (AUTO) 0.1 K/uL (0.0-0.7); EOSINOPHILS % (AUTO) 4.5 % (0.0-6.0); HEMATOCRIT 22 % (33-45); HEMOGLOBIN 7.5 g/dL (11.5-14.8); LYMPHOCYTES # (AUTO) 0.5 K/uL (0.8-4.8); LYMPHOCYTES % (AUTO) 20.9 % (20.0-44.0); MEAN CORPUSCULAR HEMOGLOBIN 33 PG (26.0-33.0); MEAN CORPUSCULAR HGB CONC 34 g/dl (31.0-36.0); MEAN CORPUSCULAR VOLUME 97 fL (82-100); MONOCYTES # (AUTO) 0.4 K/uL (0.1-1.30); NEUTROPHILS # (AUTO) 1.5 K/uL (1.8-8.9); NEUTROPHILS % (AUTO) 57.2 % (43.0-81.0); PLATELET COUNT (AUTO) 135 K/uL (150-450); RED BLOOD CELL COUNT(AUTO) 2.24 MIL/uL (4.0-5.2); RED CELL DISTRIBUTION WIDTH 15.4 % (11.5-15.0); WHITE BLOOD COUNT (AUTO) 2.5 K/uL (4.3-11.0)
[2023-09-22 07:08] LABS: CALCIUM, SERUM 7.7 mg/dL (8.5-10.1); CREATININE 0.7 mg/dL (0.6-1.3); POTASSIUM 3.8 mmol/L (3.5-5.1)
[2023-09-22 07:23] LABS: ALBUMIN 1.6 g/dL (3.4-5.0); BILIRUBIN,TOTAL 0.4 mg/dL (0.2-1.0); TOTAL PROTEIN, SERUM 8.3 g/dL (6.4-8.2)
[2023-09-22] MEDS: ASPIRIN 81 MG TAB.CHEW PO SCH (08:38)
[2023-09-22] MEDS: PANTOPRAZOLE 40 MG TABLET.DR PO SCH (08:38)
[2023-09-22] MEDS: NYSTATIN (PYXIS) 500,000 UNIT/5 ML ORAL.SUSP PO SCH ×3 (08:38→17:16)
[2023-09-22] MEDS: FUROSEMIDE 40 MG/4 ML VIAL IV SCH (09:42)
[2023-09-22] MEDS: CLOTRIMAZOLE 1% 15 GM TUBE TP SCH ×2 (10:19→17:38)
[2023-09-22] MEDS: HYDROMORPHONE 1 MG/1 ML DISP.SYRIN IV PRN ×2 (10:48→21:09)
[2023-09-22 18:36] LABS: LYMPHOCYTES % (MANUAL) 15 % (16-48); MONOCYTES % (MANUAL) 14 % (0-11.0); NEUTROPHILS % (MANUAL) 71 (42-76)
[2023-09-22 18:37] LABS: ANISOCYTOSIS 1+; PLATELET ESTIMATE ADEQUATE
[2023-09-23] VITALS (9 sets, daily range): BP systolic 112–115; BP diastolic 59–68; TEMP 97.2–99.6; O2SAT 96–99
[2023-09-23] MEDS: IPRATROPIUM NEB FS 0.5 MG/2.5 ML AMPUL.NEB NEB SCH ×4 (01:30→19:41)
[2023-09-23] MEDS: ALBUTEROL FS 2.5 MG/3 ML VIAL.NEB NEB SCH ×4 (01:30→19:41)
[2023-09-23 06:44] LABS: CALCIUM, SERUM 7.8 mg/dL (8.5-10.1); CREATININE 0.7 mg/dL (0.6-1.3); POTASSIUM 3.8 mmol/L (3.5-5.1)
[2023-09-23 06:45] LABS: BASOPHILS % (AUTO) 0.5 % (0.0-2.0); EOSINOPHILS # (AUTO) 0.1 K/uL (0.0-0.7); EOSINOPHILS % (AUTO) 4.3 % (0.0-6.0); HEMATOCRIT 23 % (33-45); HEMOGLOBIN 7.6 g/dL (11.5-14.8); LYMPHOCYTES # (AUTO) 0.6 K/uL (0.8-4.8); LYMPHOCYTES % (AUTO) 22.9 % (20.0-44.0); MEAN CORPUSCULAR HEMOGLOBIN 32 PG (26.0-33.0); MEAN CORPUSCULAR HGB CONC 33 g/dl (31.0-36.0); MEAN CORPUSCULAR VOLUME 98 fL (82-100); MONOCYTES # (AUTO) 0.4 K/uL (0.1-1.30); MONOCYTES % (AUTO) 15.9 % (2.0-12.0); NEUTROPHILS # (AUTO) 1.5 K/uL (1.8-8.9); NEUTROPHILS % (AUTO) 56.4 % (43.0-81.0); PLATELET COUNT (AUTO) 162 K/uL (150-450); RED BLOOD CELL COUNT(AUTO) 2.35 MIL/uL (4.0-5.2); RED CELL DISTRIBUTION WIDTH 15.7 % (11.5-15.0); WHITE BLOOD COUNT (AUTO) 2.6 K/uL (4.3-11.0)
[2023-09-23 06:50] LABS: ALBUMIN 1.7 g/dL (3.4-5.0); BILIRUBIN,TOTAL 0.4 mg/dL (0.2-1.0); TOTAL PROTEIN, SERUM 8.6 g/dL (6.4-8.2)
[2023-09-23] MEDS: ASPIRIN 81 MG TAB.CHEW PO SCH (08:31)
[2023-09-23] MEDS: FUROSEMIDE 40 MG/4 ML VIAL IV SCH (08:31)
[2023-09-23] MEDS: NYSTATIN (PYXIS) 500,000 UNIT/5 ML ORAL.SUSP PO SCH ×3 (08:31→17:51)
[2023-09-23] MEDS: PANTOPRAZOLE 40 MG TABLET.DR PO SCH (08:32)
[2023-09-23] MEDS: CLOTRIMAZOLE 1% 15 GM TUBE TP SCH ×2 (08:43→17:51)
[2023-09-23 11:48] LABS: EOSINOPHILS % (MANUAL) 6 % (0-4); LYMPHOCYTES % (MANUAL) 10 % (16-48); MONOCYTES % (MANUAL) 12 % (0-11.0); NEUTROPHILS % (MANUAL) 72 (42-76); PLATELET ESTIMATE ADEQUATE
[2023-09-23] MEDS: BISACODYL (5 MG) 5 MG TABLET.DR PO PRN (17:53)
[2023-09-23] MEDS: HYDROMORPHONE 1 MG/1 ML DISP.SYRIN IV PRN (18:46)
[2023-09-24] VITALS (7 sets, daily range): BP systolic 107–122; BP diastolic 68–75; TEMP 98.4–100.2; O2SAT 96–99
[2023-09-24] MEDS: IPRATROPIUM NEB FS 0.5 MG/2.5 ML AMPUL.NEB NEB SCH ×4 (00:48→19:54)
[2023-09-24] MEDS: ALBUTEROL FS 2.5 MG/3 ML VIAL.NEB NEB SCH ×4 (00:48→19:54)
[2023-09-24 06:29] LABS: BASOPHILS % (AUTO) 0.4 % (0.0-2.0); EOSINOPHILS # (AUTO) 0.1 K/uL (0.0-0.7); EOSINOPHILS % (AUTO) 3.8 % (0.0-6.0); HEMATOCRIT 24 % (33-45); LYMPHOCYTES # (AUTO) 0.6 K/uL (0.8-4.8); LYMPHOCYTES % (AUTO) 18.9 % (20.0-44.0); MEAN CORPUSCULAR HEMOGLOBIN 33 PG (26.0-33.0); MEAN CORPUSCULAR HGB CONC 34 g/dl (31.0-36.0); MEAN CORPUSCULAR VOLUME 97 fL (82-100); MONOCYTES # (AUTO) 0.4 K/uL (0.1-1.30); MONOCYTES % (AUTO) 13.5 % (2.0-12.0); NEUTROPHILS % (AUTO) 63.4 % (43.0-81.0); PLATELET COUNT (AUTO) 172 K/uL (150-450); RED BLOOD CELL COUNT(AUTO) 2.42 MIL/uL (4.0-5.2); RED CELL DISTRIBUTION WIDTH 15.4 % (11.5-15.0); WHITE BLOOD COUNT (AUTO) 3.1 K/uL (4.3-11.0)
[2023-09-24 06:36] LABS: ALBUMIN 1.7 g/dL (3.4-5.0); BILIRUBIN,TOTAL 0.4 mg/dL (0.2-1.0); CALCIUM, SERUM 7.9 mg/dL (8.5-10.1); CREATININE 0.9 mg/dL (0.6-1.3); POTASSIUM 3.9 mmol/L (3.5-5.1); TOTAL PROTEIN, SERUM 8.8 g/dL (6.4-8.2)
[2023-09-24 08:05] LABS: LYMPHOCYTES % (MANUAL) 20 % (16-48); MONOCYTES % (MANUAL) 18 % (0-11.0); NEUTROPHILS % (MANUAL) 62 (42-76)
[2023-09-24 08:06] LABS: PLATELET ESTIMATE ADEQUATE
[2023-09-24] MEDS: FUROSEMIDE 40 MG/4 ML VIAL IV SCH (08:54)
[2023-09-24] MEDS: ASPIRIN 81 MG TAB.CHEW PO SCH (08:54)
[2023-09-24] MEDS: BISACODYL (5 MG) 5 MG TABLET.DR PO PRN (08:54)
[2023-09-24] MEDS: PANTOPRAZOLE 40 MG TABLET.DR PO SCH (08:54)
[2023-09-24] MEDS: NYSTATIN (PYXIS) 500,000 UNIT/5 ML ORAL.SUSP PO SCH ×3 (08:54→16:10)
[2023-09-24] MEDS: HYDROMORPHONE 1 MG/1 ML DISP.SYRIN IV PRN ×2 (09:06→16:11)
[2023-09-24] MEDS: CLOTRIMAZOLE 1% 15 GM TUBE TP SCH ×2 (09:14→16:12)
[2023-09-24 12:24] LABS: IRON, SERUM 29 ug/dl (50-175); TOTAL IRON BINDING CAPACITY 121 ug/dl (250-450)
[2023-09-24 12:37] LABS: FERRITIN 643 ng/mL (8-388)
[2023-09-24] MEDS ORDERED: NA PHOS,M-B/NA PHOS,DI-BA 1 EA ENEMA RC ONE (13:00)
[2023-09-24] MEDS: ACETAMINOPHEN 325 MG TABLET PO PRN (15:42)
[2023-09-25] MEDS: IPRATROPIUM NEB FS 0.5 MG/2.5 ML AMPUL.NEB NEB SCH ×2 (01:09→07:57)
[2023-09-25] MEDS: ALBUTEROL FS 2.5 MG/3 ML VIAL.NEB NEB SCH ×2 (01:09→07:57)
[2023-09-25 06:15] LABS: BASOPHILS % (AUTO) 0.3 % (0.0-2.0); EOSINOPHILS # (AUTO) 0.1 K/uL (0.0-0.7); EOSINOPHILS % (AUTO) 2.8 % (0.0-6.0); HEMATOCRIT 22 % (33-45); HEMOGLOBIN 7.8 g/dL (11.5-14.8); LYMPHOCYTES # (AUTO) 0.7 K/uL (0.8-4.8); LYMPHOCYTES % (AUTO) 17.7 % (20.0-44.0); MEAN CORPUSCULAR HEMOGLOBIN 33 PG (26.0-33.0); MEAN CORPUSCULAR HGB CONC 35 g/dl (31.0-36.0); MEAN CORPUSCULAR VOLUME 96 fL (82-100); MONOCYTES # (AUTO) 0.5 K/uL (0.1-1.30); NEUTROPHILS # (AUTO) 2.6 K/uL (1.8-8.9); NEUTROPHILS % (AUTO) 66.2 % (43.0-81.0); PLATELET COUNT (AUTO) 159 K/uL (150-450); RED BLOOD CELL COUNT(AUTO) 2.33 MIL/uL (4.0-5.2); RED CELL DISTRIBUTION WIDTH 15.3 % (11.5-15.0); WHITE BLOOD COUNT (AUTO) 3.9 K/uL (4.3-11.0)
[2023-09-25 06:23] LABS: ALBUMIN 1.7 g/dL (3.4-5.0); BILIRUBIN,TOTAL 0.5 mg/dL (0.2-1.0); CALCIUM, SERUM 7.9 mg/dL (8.5-10.1); CREATININE 0.9 mg/dL (0.6-1.3); POTASSIUM 3.5 mmol/L (3.5-5.1); TOTAL PROTEIN, SERUM 8.7 g/dL (6.4-8.2)
[2023-09-25 07:57] VITALS: O2SAT 97
[2023-09-25 08:12] VITALS: O2SAT 97
[2023-09-25] MEDS: PANTOPRAZOLE 40 MG TABLET.DR PO SCH (08:13)
[2023-09-25] MEDS: NYSTATIN (PYXIS) 500,000 UNIT/5 ML ORAL.SUSP PO SCH (08:13)
[2023-09-25] MEDS: ASPIRIN 81 MG TAB.CHEW PO SCH (08:13)
[2023-09-25] MEDS: FUROSEMIDE 40 MG/4 ML VIAL IV SCH (08:13)
[2023-09-25] MEDS: CLOTRIMAZOLE 1% 15 GM TUBE TP SCH (08:14)
[2023-09-25 08:41] VITALS: BP 109/74; TEMP 99.1; O2SAT 97
[2023-09-25 11:00] LABS: EOSINOPHILS % (MANUAL) 2 % (0-4); LYMPHOCYTES % (MANUAL) 17 % (16-48); MONOCYTES % (MANUAL) 10 % (0-11.0); NEUTROPHILS % (MANUAL) 71 (42-76); PLATELET ESTIMATE ADEQUATE
== END 2023-09-25 09:35 | disposition hospice, home (50) ==
LOC: ER 10:19 → TELE 13:20 → MED 09-13 12:06
PROVIDERS: ADMIT Internal Medicine; ATTEND Internal Medicine
PROC: 009U3ZX Drainage of Spinal Canal, Percutaneous Approach, Diagnostic (ICD-10-PCS; principal; 2023-09-14)
PROC: 009U3ZX Drainage of Spinal Canal, Percutaneous Approach, Diagnostic (ICD-10-PCS; 2023-09-17)
PROC: B01BYZZ Fluoroscopy of Spinal Cord using Other Contrast (ICD-10-PCS; 2023-09-17)
DX: K75.81 Nonalcoholic steatohepatitis (NASH) (principal); D61.818 Other pancytopenia; E43 Unspecified severe protein-calorie malnutrition; G03.9 Meningitis, unspecified; I21.A1 Myocardial infarction type 2; R18.8 Other ascites; E87.1 Hypo-osmolality and hyponatremia; D63.8 Anemia in other chronic diseases classified elsewhere; E88.09 Other disorders of plasma-protein metabolism, not elsewhere classified; K74.60 Unspecified cirrhosis of liver; E87.70 Fluid overload, unspecified; G93.2 Benign intracranial hypertension; I25.2 Old myocardial infarction; Z79.01 Long term (current) use of anticoagulants; Z79.82 Long term (current) use of aspirin; Z79.899 Other long term (current) drug therapy; Z86.19 Personal history of other infectious and parasitic diseases; K21.9 Gastro-esophageal reflux disease without esophagitis; N39.0 Urinary tract infection, site not specified; K57.30 Diverticulosis of large intestine without perforation or abscess without bleeding; E03.8 Other specified hypothyroidism; D72.821 Monocytosis (symptomatic); G89.29 Other chronic pain; Z75.1 Person awaiting admission to adequate facility elsewhere; Z86.61 Personal history of infections of the central nervous system; B96.20 Unspecified Escherichia coli [E. coli] as the cause of diseases classified elsewhere; E66.9 Obesity, unspecified; Z68.38 Body mass index [BMI] 38.0-38.9, adult; M25.462 Effusion, left knee; M25.461 Effusion, right knee
CPT/HCPCS: 36415; 62270; 70450-TC; 70487-TC; 70553-TC; 71045-TC; 73564-TC; 76700-TC; 80048-TC; 80053-TC; 80076-TC; 81001; 82728-TC; 82945-TC; 83540-TC; 83605-TC; 83615-TC; 83735-TC; 84100-TC; 84155-TC; 84439-TC; 84443-TC; 84484-TC; 84550-TC; 85025-TC; 85027-TC; 85045-TC; 85652-TC; 85730-TC; 86480; 86803; 86850-TC; 87040-TC; 87081-TC; 87086-TC; 87102-TC; 87806; 87899; 89051-TC; 94799-TC; 97116-TC; 97530-TC; A4216; A4223; A6403; G0378; J0696; J1170; J1940; J2270; J2405; J7040; J7050; J7060; P9047; Q9967